=== PATIENT | male | born 1960 | race Caucasian/White ===

== ENCOUNTER 2024-02-01 21:03 | Inpatient (IN) | payer BC, SELFPAY ==
[2024-02-01] VITALS (17 sets, daily range): BP systolic 75–121; BP diastolic 44–83; PULSE 67–128; RESP 15–27; TEMP 36.1; O2SAT 93–99
--- NOTE | ~2024-02-01 | MR_ITS ---
EXAMINATION: MR cervical spine wo con DATE: 02/06/2024 17:34 INDICATION: Sudden decrease in mobility. TECHNIQUE: Magnetic resonance imaging (MRI) of the cervical spine was performed without intravenous c ontrast. COMPARISON: None FINDINGS: There is 3 degrees levocurvature of cervicothoracic spine. There is kyphosis of cervical sp ine. There is 2 mm anterolisthesis of C3 on C4. There is mild chronic anterior wedging of C5 and T1 v ertebral bodies. There is mildly decreased disc height at C3-C4 and severely decreased disc height fr om C4-C5 through C7-T1. The spinal cord signal intensity is normal. The following disc levels are spe cifically discussed: C2-C3: There is a central protrusion. There is mild bilateral uncovertebral joint osteoarthritis. The re is severe right and moderate left facet joint osteoarthritis. There is mild bilateral neural edvin inal stenosis. There is no central canal stenosis. C3-C4: There is a central protrusion with annular fissure. There is mild right and moderate left unco vertebral joint osteoarthritis. There is severe bilateral facet joint osteoarthritis. There is mild b ilateral neural foraminal stenosis. There is mild central canal stenosis. C4-C5: The disc is bulging. There is severe bilateral uncovertebral joint osteoarthritis. There is se amilcar bilateral facet joint osteoarthritis. There is mild right and moderate left neural foraminal kush nosis. There is mild central canal stenosis. C5-C6: The disc is bulging. There is severe bilateral uncovertebral joint osteoarthritis. There is mo derate right and mild left facet joint osteoarthritis. There is mild bilateral neural foraminal steno sis. There is mild central canal stenosis. C6-C7: The disc is bulging. There is moderate right and severe left uncovertebral joint osteoarthriti s. There is moderate right and mild left facet joint osteoarthritis. There is mild bilateral neural f oraminal stenosis. There is mild central canal stenosis. C7-T1: The disc is bulging. There is moderate bilateral uncovertebral joint osteoarthritis. There is severe bilateral facet joint osteoarthritis. There is mild bilateral neural foraminal stenosis. There is no central canal stenosis. IMPRESSION: 1. Severe cervical spondylosis. Reviewed, dictated and finalized at location A. CHAIN DYEING MACHINE OPERATOR
--- NOTE | ~2024-02-01 | MR_ITS ---
EXAMINATION: MR thoracic spine wo con DATE: 02/06/2024 17:35 INDICATION: Sudden decrease in mobility. TECHNIQUE: Magnetic resonance imaging (MRI) of the thoracic spine was performed without intravenous c ontrast. COMPARISON: None FINDINGS: There is 15 degrees levoscoliosis of cervicothoracic spine. There are Schmorl's nodes at ma ny levels. There is mild chronic anterior wedging of T3-T8 vertebral bodies and T11 and T12 vertebral bodies. There is decreased disc height at all levels, severe at T2-T3 and T3-T4. There is multilevel amof-at-gpmnlgsd facet joint osteoarthritis. There is mild neural foraminal stenosis at a few levels on either side. The discs are bulging at T2-T3 and T3-T4 with mild central canal stenosis. The spina l cord signal intensity is normal. IMPRESSION: 1. Severe thoracic spondylosis. 2. Cervicothoracic levoscoliosis. 3. Normal spinal cord. Reviewed, dictated and finalized at location A. TS NUTRITIONIST
--- NOTE | ~2024-02-01 | MR_ITS ---
EXAMINATION: MR lumbar spine wo con DATE: 02/06/2024 17:50 INDICATION: Sudden decrease in mobility. TECHNIQUE: Magnetic resonance imaging (MRI) of the lumbar spine was performed without intravenous con trast. Sequences included sagittal T2-weighted FSE, sagittal T2-weighted FS FSE, sagittal T1-weighted FSE, and axial T2-weighted FSE. COMPARISON: None FINDINGS: There is 3 degrees levocurvature of lumbar spine. There is 3 mm retrolisthesis of L1 on L2 and L2 on L3. There is mild chronic anterior wedging of T12 and L1 vertebral bodies. There is mildly decreased disc height at T12-L1 and L1-L2, severely decreased disc height at L2-L3 and L3-L4, moderat masood decreased disc height at L4-L5, and severely decreased disc height at L5-S1. The distal spinal co rd signal intensity is normal. The conus medullaris is at T12-L1. The following disc levels are speci fically discussed: L1-L2: The disc is bulging and has an annular fissure. There is mild bilateral facet joint osteoarthr itis. There is mild bilateral neural foraminal stenosis. There is mild central canal stenosis. L2-L3: The disc is bulging and has an annular fissure. There is moderate bilateral facet joint osteoa rthritis. There is mild right and moderate left neural foraminal stenosis. There is mild central gonzález l stenosis. L3-L4: The disc is bulging and has an annular fissure. There is mild bilateral facet joint osteoarthr itis. There is mild right and moderate left neural foraminal stenosis. There is mild central canal st enosis. L4-L5: The disc is bulging and has an annular fissure. There is moderate right and severe left facet joint osteoarthritis. There is mild bilateral neural foraminal stenosis. There is mild central canal stenosis. L5-S1: The disc is bulging and has an annular fissure. There is moderate bilateral facet joint osteoa rthritis. There is mild bilateral neural foraminal stenosis. There is mild central canal stenosis. IMPRESSION: 1. Severe lumbar spondylosis. Reviewed, dictated and finalized at location A. LRY OFFICER
--- NOTE | ~2024-02-01 | CT_ITS ---
EXAMINATION: CT chest abdomen pelvis w con DATE: 02/02/2024 13:15 INDICATION: Lactic acidosis. TECHNIQUE: Computed tomography (CT) of the chest, abdomen, and pelvis was performed with 100 mL Omnip aque 350 intravenous contrast. Automated exposure control and iterative reconstruction technique were employed. The dose-length product was 1847.67 mGy-cm. COMPARISON: Chest single view 02/01/2024 FINDINGS: CHEST CT: The lungs demonstrate mild atelectasis. No pleural effusion. The heart size is normal. No pericardial effusion. There are coronary artery calcifications. There is bilateral gynecomastia. There is severe cervical and thoracic spondylosis. There is mild chronic anterior wedging of multiple vertebral bodi es. ABDOMEN/PELVIS CT: There is diffuse hepatic steatosis. The gallbladder is distended and contains sludge versus stones. T he spleen, pancreas, and adrenal glands are normal. There are cysts in the kidneys measuring up to 2. 0 cm on the left. The prostate is moderately enlarged. There are no dilated loops of bowel. The appen rhonda is normal. There are no pathologically enlarged lymph nodes. There is no free intraperitoneal flu id. There is no significant stenosis of celiac axis, superior mesenteric artery, inferior mesenteric artery, or the renal arteries. There is severe lumbar spondylosis. There is mild chronic anterior wed ging of L1 vertebral body. IMPRESSION: 1. Gallbladder distention, which may be secondary to fasting or acute cholecystitis. Correlate with p hysical exam. 2. Diffuse hepatic steatosis. Reviewed, dictated and finalized at location A. ING MACHINE TENDER DECORATIVE IMPRESSION: 1. Gallbladder distention, which may be secondary to fasting or acute cholecyst itis. Correlate with physical exam. 2. Diffuse hepatic steatosis.
--- NOTE | ~2024-02-01 | MR_ITS ---
EXAMINATION: MR brain/brain stem wo con DATE: 02/06/2024 17:33 INDICATION: Sudden decrease in mobility. Dizziness and weakness. TECHNIQUE: Magnetic resonance imaging (MRI) of the brain and brainstem was performed without intraven ous contrast. COMPARISON: None. FINDINGS: There are small old infarcts in the cerebellum bilaterally. There are scattered areas of no nspecific increased T2-weighted signal intensity in the cerebral white matter, which is within normal limits for the patient's age. There is no intracranial hemorrhage, acute infarction, or abnormal int racranial mass lesion. The ventricles are normal in size. The orbits are normal. There is mild mucosa l thickening in the paranasal sinuses. The mastoid air cells are normal. IMPRESSION: 1. 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 Reviewed, dictated and finalized at location A. [employer]
--- NOTE | ~2024-02-01 | US_ITS ---
Limited ABDOMINAL ULTRASOUND (Doppler ultrasound interrogation techniques used as needed for this exa m.) Ordering provider: Twan Rivera MD History: . RUQ ?Acute cholecystitis . Comparison: None. FINDINGS: PANCREAS: Normal size. Increased echogenicity. PORTAL VEIN: Hepatopedal flow demonstrated. LIVER: Normal size and increased echotexture. No focal hepatic lesions or perihepatic fluid collectio ns are identified. BILIARY DUCTS: No intra or extrahepatic biliary dilation. Common bile duct measures 2.8 mm in diamete r which is normal for patient's age. GALLBLADDER: Echogenic debris is noted. No stones, gallbladder wall thickening or pericholecystic flu id. Wall thickness is 3.6 mm. Negative sonographic Herrera's sign. FREE FLUID: None visualized within the upper abdomen. IMPRESSION: Fat infiltration of the liver. Echogenic Sludge in the gallbladder. Otherwise, normal limited abdomin al ultrasound. Reviewed, dictated and finalized at location A. GER WOUND CARE IMPRESSION: Fat infiltration of the liver. Echogenic Sludge in the gallbladder. Otherwise, normal limited abdominal ultrasound.
--- NOTE | ~2024-02-01 | XR_ITS ---
Portable chest x-ray Comparison: 12/09/2012 Clinical History: Weakness Findings: Lungs are clear, without focal consolidation or pleural effusion. Cardiomediastinal silho uette is stable. Bones and soft tissues are unremarkable. Impression: Clear lungs. Reviewed, dictated and finalized at location M. LEASING EXAMINER Impression: Clear lungs.
[2024-02-01 23:34] LABS: Hematocrit 41.7 % (42.0-52.0); Hemoglobin 14.5 g/dL (14.0-18.0); Immature Platelet Fraction Pct 12.7 % (0.9-11.2); Mean Corpuscular HGB Conc 34.8 g/dl (32-36); Mean Corpuscular Hemoglobin 37.6 pg (26-34); Mean Platelet Volume 11.8 fl (7.4-10.4); Platelet Count Result 110 k/mm3 (150-375); Red Blood Count 3.86 M/mm3 (4.6-6.20); Red Cell Distribution Width 13.3 % (11.5-14.5); White Blood Count 5.5 K/mm3 (4.5-10.0)
[2024-02-01 23:43] LABS: Lactic Acid Reflex 2.8 mmol/L (0.7-2.0)
[2024-02-01 23:54] LABS: NT Pro B Type Natriuretic Pept 38 pg/mL (19.9-100); Troponin I < 0.012 ng/mL (0.000-0.034)
[2024-02-01 23:59] LABS: Band Neutrophils Percent 1 % (0-6); Basophils Absolute Manual 0.11 K/mm3 (0.0-0.1); Basophils Percent Manual 2 % (0-1); Eosinophils Absolute Manual 0.16 K/mm3 (0.02-0.50); Eosinophils Percent Manual 3 % (0-4); Giant Platelets Present; Lymphocytes Absolute Manual 1.04 K/mm3 (1.1-4.5); Monocytes Absolute Manual 0.44 K/mm3 (0.1-0.90); Monocytes Percent Manual 8 % (3-9); Neutrophils Absolute Manual 3.74 K/mm3 (1.3-6.7); Neutrophils Percent Manual 67 % (46-73); Platelet Clumps Present; Platelet Estimate Decreased (Adequate); Total Cells Counted 100
[2024-02-02] VITALS (48 sets, daily range): BP systolic 68–158; BP diastolic 28–89; PULSE 68–128; RESP 15–33; TEMP 36.7–37.9; O2SAT 92–98; BMI 38.4
[2024-02-02] LABS: Anisocytosis 1+; Schistocytes None Seen; Stomatocytes 1+
--- NOTE | 2024-02-02 | ECHO_ITS ---
Patient Info Name: Yoshi Cramer Age: 63 years : 1960 Gender: Male Ht: 71 in Wt: 275 lbs BSA: 2.55 m2 HR: 87 bpm BP: 131 / 66 mmHg Technical Quality: Fair Exam Date: 02/02/2024 9:27 AM Exam Location: Echo Lab Patient Status: Inpatient Admit Date: 02/02/2024 Staff Ordering Physician: Gerardo Hussein MD Ruby On Rails Web Developer: Sheri Mathias RDCS Attending Provider: Gerardo Hussein MD Referring Physician: Keenan PADILLA; Exam Type: CA echo doppler color flow Study Info Indications R42 - Dizziness and giddiness Complete two-dimensional, color flow and Doppler transthoracic echocardiogram is performed. Summary 1. Complete two-dimensional, color flow and Doppler transthoracic echocardiogram is performed. 2. Left ventricle is normal in size and systolic function. The left ventricular ejection fraction is visually estimated to be 50-55%. 3. The right ventricle is normal in size and systolic function. Left Ventricle Left ventricle is normal in size and systolic function. The left ventricular ejection fraction is visually estimated to be 50-55%. Right Ventricle The right ventricle is normal in size and systolic function. Left Atria The left atrium is normal in size. Right Atria The right atrium is normal in size. Atrial Septum The atrial septum visually appears intact. Aortic Valve The aortic valve is not well visualized however the gradients across the valve suggests a normal functioning aortic valve. There is trace aortic regurgitation. Pulmonic Valve The pulmonic valve is not well visualized. There is no color Doppler evidence of pulmonic valve regurgitation. Mitral Valve The mitral valve is normal. There is trace mitral regurgitation. Tricuspid Valve The tricuspid valve is grossly normal. There is trace tricuspid regurgitation. Pericardium/Pleural Pericardium is normal in appearance with no evidence for significant pericardial effusion. Inferior Vena Cava Inferior vena cava is not well visualized. Aorta The aortic root at the level of the sinus of Valsalva measures 3.6 cm in diameter. Left Ventricular Outflow Tract Name Value Normal LVOT 2D LVOT Diameter 2.3 cm LVOT Doppler LVOT Peak Gradient 6 mmHg LVOT Mean Gradient 4 mmHg LVOT VTI 28 cm LVOT VTI/AV VTI Ratio 1.1 LVOT Stroke Volume 115 ml LVOT CO 8.8 l/min LVOT CI 3.5 l/min/m2 Pulmonic Valve Name Value Normal RVOT Doppler RVOT Peak Gradient 4 mmHg PV Doppler PV Peak Gradient 5 mmHg Mitral Valve Name Value Normal MV Doppler MV Decel Routt 272 cm/s2 MV PHT 54 ms MV Area (PHT) 4.1 cm2 4.0-5.0 MV Diastolic Function MV E Peak Velocity 51 cm/s MV A Peak Velocity 99 cm/s MV E/A 0.5 MV Decel Time 186 ms Tricuspid Valve Name Value Normal TV Regurgitation Doppler TR Peak Velocity 207 cm/s TR Peak Gradient 17 mmHg Estimated PAP/RSVP RA Pressure 10 mmHg <=5 PA Systolic Pressure 27 mmHg <36 RV Systolic Pressure 27 mmHg <36 Aorta Name Value Normal Ascending Aorta Ao Root Diameter (MM) 3.8 cm Ao Root Diam Index (MM) 1.5 cm/m2 Aortic Valve Name Value Normal AV Doppler AV Peak Velocity 150 cm/s AV Peak Gradient 9 mmHg AV Mean Gradient 5 mmHg AV VTI 25 cm AV Area (Cont Eq VTI) 4.6 cm2 >=3.0 AV Area (Cont Eq Alf) 3.3 cm2 AV Regurgitation 2D LVOT Area 4.1 cm2 AV Regurgitation Doppler AR Decel Time 1,810 ms AR Decel Routt 195 cm/s2 AR PHT 525 ms Ventricles Name Value Normal LV Dimensions 2D/MM IVS Diastolic Thickness (2D) 0.9 cm 0.6-1.0 LVID Diastole (2D) 5.3 cm 4.2-5.8 LVIW Diastolic Thickness (2D) 0.9 cm 0.6-1.0 LVID Systole (2D) 3.4 cm 2.5-4.0 LVOT Diameter 2.3 cm LV Mass (2D Cubed) 178.41 g 88.00-224.00 LV Mass Index (2D Cubed) 70 g/m2 49-115 Relative Wall Thickness (2D) 0.34 LV Fractional Shortening/Ejection Fraction 2D/MM LV Fractional Shortening (2D) 35 % 25-43 LV EF (2D Teicholz) 64 % 52-72 LV Diastolic Volume (4C MOD) 96 ml LV EF (4C MOD) 60 % LV Diastolic Volume (2C MOD) 93 ml LV EF (2C MOD) 51 % LV Diastolic Volume (BP MOD) 95 ml 62-150 LV Diastolic Volume Index (BP MOD) 37 ml/m2 34-74 LV Systolic Volume (BP MOD) 43 ml 21-61 LV Systolic Volume Index (BP MOD) 17 ml/m2 11-31 LV EF (BP MOD) 54 % 52-72 LV Diastolic Length (4C) 9.7 cm LV Systolic Length (4C) 8.2 cm LV Stroke Volume (4C MOD) 57 ml Atria Name Value Normal LA Dimensions LA Dimension (MM) 4.3 cm 3.0-4.1 LA Volume (4C A-L) 35 ml LA Volume (BP A-L) 48 ml RA Dimensions RA Area (4C) 15.3 cm2 <=18.0 EchoPAC Name Value Normal AutoEF LVCO_BiP_Q (Dkie8INF) 6.1 l/min LVEF_BiP_Q (Uxxk1HZP) 51 % LVSV_BiP_Q (Goli9NRN) 65 ml LVVED_BiP_Q (Hmcd4MZG) 128 ml LVVES_BiP_Q (Bqnh8VZS) 62 ml HR_4Ch_Q (Mkaj7IQS) 92 bpm LVCO_4Ch_Q (Rzcg7PPT) 6.0 l/min LVEF_4Ch_Q (Yldb0AAT) 53 % LVLd_4Ch_Q (Rtxe4BAB) 10.2 cm LVLs_4Ch_Q (Boxz8CTV) 8.7 cm LVSV_4Ch_Q (Xqlf7CVO) 65 ml LVVED_4Ch_Q (Dkyw9OEZ) 123 ml LVVES_4Ch_Q (Hsen5IAT) 58 ml HR_2Ch_Q (Mbwb7PVF) 93 bpm LVCO_2Ch_Q (Opgd1BAV) 6.1 l/min LVEF_2Ch_Q (Pwgf2GDV) 49 % LVLd_2Ch_Q (Ymyk3IUZ) 10.0 cm LVLs_2Ch_Q (Rvci8STM) 8.4 cm LVSV_2Ch_Q (Uiln5HPL) 66 ml LVVED_2Ch_Q (Qzfb5CTM) 134 ml LVVES_2Ch_Q (Yaqg3JKC) 68 ml ADDIE AA peak sys SL (AWMA) 12.1 % AAS peak sys SL (AWMA) 28.0 % AI peak sys SL (AWMA) 21.0 % AL peak sys SL (AWMA) 14.3 % AP peak sys SL (AWMA) 13.8 % peak sys SL (AWMA) 15.5 % AVC (AWMA) 286 ms BA peak sys SL (AWMA) 33.1 % BAS peak sys SL (AWMA) 22.6 % BI peak sys SL (AWMA) 18.3 % BL peak sys SL (AWMA) 19.4 % BP peak sys SL (AWMA) 26.6 % BS peak sys SL (AWMA) 9.0 % G peak SL(A2C) (AWMA) 18.9 % G peak SL(A4C) (AWMA) 15.1 % G peak SL(APLAX) (AWMA) 20.8 % G peak SL(Avg) (AWMA) 18.3 % MA peak sys SL (AWMA) 15.1 % MAS peak sys SL (AWMA) 22.9 % DE peak sys SL (AWMA) 18.7 % ML peak sys SL (AWMA) 16.1 % MP peak sys SL (AWMA) 8.9 % MS peak sys SL (AWMA) 21.0 % Report Signatures
[2024-02-02 00:01] LABS: Atypical Lymphocytes Present; Smudge Cells PRESENT
[2024-02-02 00:03] LABS: Alanine Aminotransferase 68 U/L (6-50); Albumin Level 4.8 g/dL (3.5-5.1); Alkaline Phosphatase 76 U/L (38-126); Anion Gap 19 mmol/L (4-12); Aspartate Amino Transferase 136 U/L (17-59); Bilirubin,Total 1.4 mg/dL (0.2-1.3); Blood Urea Nitrogen 11 mg/dL (9-20); Carbon Dioxide 25 mmol/L (22-30); Chloride 95 mmol/L (98-107); Estimated Glomerular Filt Rate > 60; Glucose 91 mg/dL (65-110); Magnesium 2.1 mg/dL (1.6-2.3); Sodium 139 mmol/L (137-145)
[2024-02-02] MEDS: SODIUM CHLORIDE 0.9% IV 1,000 ML 999 ML IV CONT ×4 (00:20→07:38)
[2024-02-02] MEDS: Please add drug allergy info to patient profile. 1 EACH XX (01:17)
[2024-02-02] MEDS: POTASSIUM CHLORIDE 20 MEQ PACKET (FOR LIQUID) 40 MEQ PO ×3 (01:29→09:06)
--- NOTE | 2024-02-02 01:43 | ECG_ITS ---
Test Date: 2024-02-02 01:43:48 Measurements Intervals [place] Rate: 73 P: 58 MI: 180 QRS: -53 QRSD: 152 T: 1 QT: 420 QTc: 464 Interpretive Statements SINUS RHYTHM LEFT AXIS DEVIATION [QRS AXIS < -30] RIGHT BUNDLE BRANCH BLOCK [120+ ms QRS DURATION, UPRIGHT V1, 40+ ms S IN I/aVL/V4/V5/V6] ABNORMAL ECG Electronically Signed On 02-02-2024 09:01:13 SEALING AND CANCELING MACHINE OPERATOR by Jake Akers M.D.
--- NOTE | 2024-02-02 01:55 | ED_ITS ---
HPI - General Adult General Chief complaint: Dizziness Stated complaint: dizziness Time Seen by Provider: 02/01/24 23:00 History of Present Illness HPI narrative: Patient is a 61-year-old gentleman who presents emergency department with chief complaint of dizziness. The patient reports that T had a few drinks this evening and then reports that he has been feeling lightheaded patient reports that over the last week or so he has had episodes where he has been getting lightheaded with standing and reports that he continues walking he with then loses balance and fall the ground the patient denies head injury denies loss of consciousness reports that the symptoms are improved with gradual standing. The patient reports that he has had no vomiting or diarrhea denies chest pain or sh ortness of breath Related Data Allergies Allergy/AdvReac Type Severity Reaction Status Date / Time No Known Allergies Allergy Verified 02/02/24 03:48 Review of Systems Review of Systems: A 10 system review of systems was completed on the patient and is negative except for what is stated in the HPI. Nursing and ancillary documentation was reviewed. Exam Narrative: GENERAL: Well-appearing, well-nourished, and in no acute distress. HEAD: Normocephalic, atraumatic. EYES: PERRLA and EOMI. ENT: Nares clear, no rhinorrhea or epistaxis. Mucous membranes moist. NECK: Supple. CHEST: Clear to auscultation. No respiratory distress. HEART: Regular rate and rhythm. No murmur heard. Normal peripheral pulses. ABDOMEN: Soft, nontender, nondistended, normal active bowel sounds. EXTREMITIES: Normal range of motion. No edema. SKIN: Warm, dry, no rash. NEURO: No focal deficits. Alert and oriented x3. PSYCH: Normal mood and affect. Course Vital Signs Vital signs: Vital Signs Temperature 36.1 C L 02/01/24 21:06 Pulse Rate 96 02/01/24 21:06 Respiratory Rate 15 02/01/24 21:06 Blood Pressure 121/83 02/01/24 21:06 Pulse Oximetry 97 02/01/24 21:06 Oxygen Delivery Room Air 02/01/24 21:06 Temperature 36.1 C L 02/01/24 21:06 Pulse Rate 78 02/02/24 03:16 Respiratory Rate 20 02/02/24 03:16 Blood Pressure 131/72 02/02/24 03:16 Pulse Oximetry 94 02/02/24 03:16 Oxygen Delivery Room Air 02/01/24 21:06 Medical Decision Making MDM Narrative Medical decision making narrative: Differential diagnosis includes dehydration, orthostatic hypotension, electrolyte abnormality, anemia, EKG showed no acute ischemic changes the patient was profoundly orthostatic prior to receiving the 1 L of fluids. The patient has received a total of 2 L of boluses in the emergency department Patient received an additional L of normal saline and has had significant improvement but is still orthostatic. The case was discussed with the hospitalist for observation admission Vital Signs Vital Signs: Vital Signs Temperature 36.1 C L 02/01/24 21:06 Pulse Rate 96 02/01/24 21:06 Respiratory Rate 15 02/01/24 21:06 Blood Pressure 121/83 02/01/24 21:06 Pulse Oximetry 97 02/01/24 21:06 Oxygen Delivery Room Air 02/01/24 21:06 Temperature 36.1 C L 02/01/24 21:06 Pulse Rate 78 02/02/24 03:16 Respiratory Rate 20 02/02/24 03:16 Blood Pressure 131/72 02/02/24 03:16 Pulse Oximetry 94 02/02/24 03:16 Oxygen Delivery Room Air 02/01/24 21:06 Lab Data 02/01/24 23:26 02/01/24 23:26 Labs: Lab Results 02/01/24 Range/Units 23:26 WBC 5.5 (4.5-10.0) K/mm3 RBC 3.86 L (4.6-6.20) M/mm3 Hgb 14.5 (14.0-18.0) g/dL Hct 41.7 L (42.0-52.0) % MCV 108.0 H (80-100) fl MCH 37.6 H (26-34) pg MCHC 34.8 (32-36) g/dl RDW 13.3 (11.5-14.5) % Plt Count 110 L (150-375) k/mm3 MPV 11.8 H (7.4-10.4) fl Immature Gran % (Auto) Not Reportable Neut % (Auto) Not Reportable Lymph % (Auto) Not Reportable [place] % (Auto) Not Reportable Eos % (Auto) Not Reportable Baso % (Auto) Not Reportable Lymph # (Auto) Not Reportable [place] # (Auto) Not Reportable Eos # (Auto) Not Reportable Baso # (Auto) Not Reportable Abs Immat Gran (auto) Not Reportable Absolute Neuts (auto) Not Reportable Absolute Nucleated RBC Not Reportable Total Counted 100 Neutrophils % (Manual) 67 (46-73) % Band Neutrophils % 1 (0-6) % Lymphocytes % (Manual) 19.0 (18-44) % Monocytes % (Manual) 8 (3-9) % Eosinophils % (Manual) 3 (0-4) % Basophils % (Manual) 2 H (0-1) % Nucleated RBC % Not Reportable Abs Neuts (Manual) 3.74 (1.3-6.7) K/mm3 Abs Lymphs (Manual) 1.04 L (1.1-4.5) K/mm3 Abs Monocytes (Manual) 0.44 (0.1-0.90) K/mm3 Absolute Eos (Manual) 0.16 (0.02-0.50) K/mm3 Abs Basophils (Manual) 0.11 H (0.0-0.1) K/mm3 Atypical Lymphocytes Present Smudge Cells Present Platelet Estimate Decreased (Adequate) Clumped Platelets Present Giant Platelets Present % Immature Plt Fraction 12.7 H (0.9-11.2) % Anisocytosis 1+ Stomatocytes 1+ Schistocytes None seen Sodium 139 (137-145) mmol/L Potassium 3.0 L (3.4-5.0) mmol/L Chloride 95 L (98-107) mmol/L Carbon Dioxide 25 (22-30) mmol/L Anion Gap 19 H (4-12) mmol/L BUN 11 (9-20) mg/dL Creatinine 0.90 (0.7-1.3) mg/dL Estim Creat Clear Calc Not Reportable Estimated GFR > 60 (59 - ) Glucose 91 (65-110) mg/dL Lactic Acid 2.8 H (0.7-2.0) mmol/L Calcium 9.0 (8.4-10.2) mg/dL Magnesium 2.1 (1.6-2.3) mg/dL Total Bilirubin 1.4 H (0.2-1.3) mg/dL AST 136 H (17-59) U/L ALT 68 H (6-50) U/L Alkaline Phosphatase 76 (38-126) U/L Troponin I < 0.012 (0.000-0.034) ng/mL NT-Pro-B Natriuret Pep 38 (19.9-100) pg/mL Total Protein 8.0 (6.3-8.2) g/dL Albumin 4.8 (3.5-5.1) g/dL Discharge Plan Discharge Clinical Impression: Orthostatic hypotension Patient Disposition: Still a Patient Condition: Stable Follow-up/Referrals: Myesha,ELIE Dior [Primary Care Provider] - Time of Disposition: 03:52
[2024-02-02 02:30] LABS: Reflex Lactic Acid Yes or No Add Lactic
[2024-02-02] MEDS: THIAMINE 500 MG/NS 100 ML 500 MG/100 ML BAG 200 MG IVPB (04:13)
[2024-02-02 04:56] LABS: Lactic Acid 2.7 mmol/L (0.7-2.0)
[2024-02-02 04:57] LABS: Add Urine Microscopic? YES; Appearance Urine Clear (Clear); Bacteria Urine None Seen /hpf; Bilirubin Urine Negative (Negative); Blood Urine 3+ (Negative); Color Urine Dark Yellow (Yellow); Glucose Urine UA Negative (Negative); Ketones Urine 3+ mg/dL (Negative); Leukocyte Esterase Ur Negative LEU/UL (Negative); Nitrate Urine Negative (Negative); Protein Urine 2+ mg/dL (Negative); RBC Urine >100 /hpf (0-2); Squamous Epithelial Cell Urine None Seen /hpf (Few); WBC Urine 0-5 /hpf (0-3); pH Urine 5.5 (5.0-9.0)
[2024-02-02 05:01] LABS: Anion Gap 18 mmol/L (4-12); Blood Urea Nitrogen 10 mg/dL (9-20); Carbon Dioxide 20 mmol/L (22-30); Chloride 101 mmol/L (98-107); Estimated Glomerular Filt Rate > 60; Ethanol 106 mg/dL (<10); Glucose 86 mg/dL (65-110); Potassium 3.1 mmol/L (3.4-5.0); Sodium 139 mmol/L (137-145); Troponin I < 0.012 ng/mL (0.000-0.034)
--- NOTE | 2024-02-02 05:37 | PC.NURSE ---
PATIENT ARRIVED ON UNIT AT 0530
[2024-02-02] MEDS: SODIUM CHLORIDE 0.9% IV 1,000 ML 125 ML IV CONT (06:01)
--- NOTE | 2024-02-02 06:27 | P.HP_ITS ---
H&P: HPI History of Present Illness Date/Time: 02/02/24 06:27 Chief Complaint: 1. Dizziness 2. Unstable gait Narrative: Yoshi Cramer is a 63 yo M with a Mhx significant for obesity, alcohol dependence, glaucoma and dyslipidemia He over the last week he has been experiencing dizzy spells; they are aggravated by positional changes like standing from sitting, alleviated by immobility, associated wiht poor execution of his ADLs and near falls. He denies chest pain, nausea, vomiting, dysuria, flank pain, fevers, headaches, confusion, skin/joint changes He consumes about 3-5 mixed drinks daily, denies smoking/tobacco use or recreational drug use Work-up findings CXR: Unremarkable WBC 3.3 Hb 14 PLT 110 MCVV 108 Na 139 K 3 Cl 95 HCO3 25 AG 19 LA 2.8 >> 2.7 AST 136 ALT 68 T. Bili 1.4 Troponin: <0.012 x2 ECG: NsR: RBBB; no ST-T wave changes. BNP 38UA: Unremarkable Alcohol 106 In the ED, his VS were orthostatic+; He will be admitted, evaluated and managed for orthostatic hypotension and dizziness Review of Systems Review of Systems: All systems reviewed & are unremarkable except as noted in HPI and below Constitutional: Constitutional: Reports body ache(s) and Reports fatigue Eyes: Eyes: Reports blurry vision ENT: Reports system reviewed and no additional complaints, except as documented, Reports Normal hearing present and Denies dysphagia Cardiovascular: Cardiovascular: Denies leg edema and Reports lightheadedness Respiratory: Respiratory: Reports hemoptysis, Reports dyspnea and Reports dyspnea on exertion Gastrointestinal: Gastrointestinal: Denies hematochezia, Denies constipation, Denies heartburn, Denies diarrhea and Denies vomiting Genitourinary: Genitourinary: Denies flank pain, Denies urinary frequency and Denies urinary hesitancy Integumentary/Breasts: Skin/Breast: Denies breast mass, Denies dry skin and Denies erythema Neurologic: Denies Abnormal speech present, Reports abnormal gait, Denies confusion, Denies vertigo and Denies headache(s) Psychiatric: Psychiatric: Denies confusion and Denies depression [facility] Family History Family History (Updated 02/02/24 @ 05:10 by Jaleesa Graves RN) Mother Lung cancer Father Chronic obstructive pulmonary disease Cerebrovascular accident Social History Social History Years smoked: 1 Smoking status: Former smoker Alcohol intake: current Drinks per week: 21 Substance use type: does not use Do You Feel Safe in your Home?: Yes Lack of Transportation: No Lack of Food: Never True Current Housing: I Have Housing Concerned About Future Housing: No Difficulty Paying Gas/Electric Bills: No Difficulty Paying for Meds: No Currently Unemployed: No Education: Bachelor's Degree Difficulty w/ Childcare or Family Care: No Spiritual care concerns: No Meds Home Medications and Allergies Home Medications Medication Instructions Recorded Confirmed Type bimatoprost 0.01 % eye drops 1 drp EACH EYE HS 02/02/24 02/02/24 History ([place]) rosuvastatin 10 mg tablet 10 mg PO HS 02/02/24 02/02/24 History Allergies Allergy/AdvReac Type Severity Reaction Status Date / Time No Known Allergies Allergy Verified 02/02/24 03:48 Vital Signs Vital Signs - 24 hr 02/01/24 21:06 02/01/24 21:51 02/01/24 21:54 Temperature 97 F L Pulse Rate 96 80 76 Respiratory Rate 15 19 27 H Blood Pressure 121/83 118/75 Pulse Oximetry 97 95 95 Oxygen Delivery Room Air 02/01/24 22:17 02/01/24 22:30 02/01/24 22:32 Temperature Pulse Rate 69 67 71 Respiratory Rate 18 18 17 Blood Pressure 116/63 115/57 L Pulse Oximetry 93 Oxygen Delivery 02/01/24 22:47 02/01/24 23:02 02/01/24 23:15 Temperature Pulse Rate 85 76 76 Respiratory Rate 21 H 20 19 Blood Pressure 118/71 110/63 Pulse Oximetry 95 97 Oxygen Delivery 02/01/24 23:16 02/01/24 23:44 02/01/24 23:45 Temperature Pulse Rate 77 79 82 Respiratory Rate 21 H Blood Pressure 102/77 117/70 110/60 Pulse Oximetry Oxygen Delivery 02/01/24 23:47 02/02/24 02:14 02/02/24 02:16 Temperature Pulse Rate 117 H 82 98 Respiratory Rate Blood Pressure 75/44 L 123/61 132/74 Pulse Oximetry Oxygen Delivery 02/02/24 02:18 02/01/24 23:32 02/01/24 23:46 Temperature Pulse Rate 128 H 75 83 Respiratory Rate 21 H 23 H Blood Pressure 68/46 L 117/62 117/70 Pulse Oximetry 96 99 Oxygen Delivery 02/01/24 23:48 02/01/24 23:50 02/02/24 00:00 Temperature Pulse Rate 128 H 72 Respiratory Rate 25 H 24 H Blood Pressure 110/60 75/44 L Pulse Oximetry 98 97 Oxygen Delivery 02/02/24 00:02 02/02/24 00:15 02/02/24 00:16 Temperature Pulse Rate 70 75 77 Respiratory Rate 21 H 20 21 H Blood Pressure 116/66 104/63 Pulse Oximetry 96 94 94 Oxygen Delivery 02/02/24 00:30 02/02/24 00:31 02/02/24 00:45 Temperature Pulse Rate 70 70 77 Respiratory Rate 20 21 H 20 Blood Pressure 105/62 Pulse Oximetry 96 97 95 Oxygen Delivery 02/02/24 00:46 02/02/24 01:00 02/02/24 01:01 Temperature Pulse Rate 78 76 73 Respiratory Rate 20 18 16 Blood Pressure 119/66 102/59 L Pulse Oximetry 94 98 Oxygen Delivery 02/02/24 01:05 02/02/24 01:07 02/02/24 01:08 Temperature Pulse Rate 80 101 H 99 Respiratory Rate 20 24 H 21 H Blood Pressure 114/64 76/28 L 107/64 Pulse Oximetry 92 95 Oxygen Delivery 02/02/24 01:14 02/02/24 01:15 02/02/24 01:17 Temperature Pulse Rate 74 89 68 Respiratory Rate 22 H 25 H 22 H Blood Pressure 118/63 131/58 L Pulse Oximetry 93 93 95 Oxygen Delivery 02/02/24 01:30 02/02/24 01:32 02/02/24 01:45 Temperature Pulse Rate 100 89 80 Respiratory Rate 24 H 17 24 H Blood Pressure 113/67 Pulse Oximetry 96 Oxygen Delivery 02/02/24 01:47 02/02/24 02:00 02/02/24 02:01 Temperature Pulse Rate 74 80 80 Respiratory Rate 22 H 22 H 19 Blood Pressure 118/81 122/61 Pulse Oximetry 97 96 95 Oxygen Delivery 02/02/24 02:15 02/02/24 02:16 02/02/24 02:18 Temperature Pulse Rate 95 82 98 Respiratory Rate 25 H 22 H 15 Blood Pressure 123/61 132/74 Pulse Oximetry 93 98 93 Oxygen Delivery 02/02/24 02:22 02/02/24 02:27 02/02/24 02:30 Temperature Pulse Rate 119 H 77 79 Respiratory Rate 26 H 22 H 20 Blood Pressure 68/46 L 98/65 L Pulse Oximetry 95 96 Oxygen Delivery 02/02/24 02:31 02/02/24 02:46 02/02/24 03:16 Temperature Pulse Rate 80 78 78 Respiratory Rate 22 H 21 H 20 Blood Pressure 105/86 130/63 131/72 Pulse Oximetry 92 93 94 Oxygen Delivery 02/02/24 03:33 02/02/24 03:36 02/02/24 03:45 Temperature Pulse Rate 105 H 98 121 H Respiratory Rate 28 H 26 H 19 Blood Pressure 145/83 H 120/69 Pulse Oximetry 92 Oxygen Delivery 02/02/24 03:47 02/02/24 04:00 02/02/24 04:02 Temperature Pulse Rate 77 85 Respiratory Rate 21 H 33 H Blood Pressure 98/58 L 125/76 Pulse Oximetry Oxygen Delivery 02/02/24 05:55 Temperature 98.4 F Pulse Rate 83 Respiratory Rate 20 Blood Pressure 131/66 Pulse Oximetry 92 Oxygen Delivery Exam HENMT: Ears: TM's normal bilaterally Mouth: Yes moist mucous membranes, Yes dry mucous membranes and Yes Abnormal oral and palatal mucosa present Eyes: Pupils: Equal, round and reactive pupils present EOM: EOMs intact bilaterally Neck: Neck: supple Lymphatic: lymphadenopathy not noted Resp: Auscultation: clear to auscultation bilaterally, no crackles, no rales, no rhonchi and no wheezes Cardio: Rate: regular rate Rhythm: regular rhythm GI: Auscultation: normal bowel sounds : Male General Exam: Yes normal external exam Skin: General skin exam: normal color Neuro: Motor exam (neuro): 5/5 motor strength present throughout, Normal motor muscle tone present throughout and Abnormal motor strength present Extrem: General: normal to inspection Psych: Mental Status: mental status grossly normal Affect: normal affect and Anxious affect present H&P: Results Labs Labs: Short CBC 02/01/24 Range/Units 23:26 WBC 5.5 (4.5-10.0) K/mm3 Hgb 14.5 (14.0-18.0) g/dL Hct 41.7 L (42.0-52.0) % Plt Count 110 L (150-375) k/mm3 BMP 02/01/24 02/02/24 23:26 04:05 Sodium 139 139 Potassium 3.0 L 3.1 L Chloride 95 L 101 Carbon Dioxide 25 20 L BUN 11 10 Creatinine 0.90 0.90 Glucose 91 86 Calcium 9.0 8.0 L Cardiac Enzymes 02/01/24 02/02/24 Range/Units 23:26 04:05 Troponin I < 0.012 < 0.012 (0.000-0.034) ng/mL Liver Function 02/01/24 Range/Units 23:26 Total Bilirubin 1.4 H (0.2-1.3) mg/dL AST 136 H (17-59) U/L ALT 68 H (6-50) U/L Alkaline Phosphatase 76 (38-126) U/L Albumin 4.8 (3.5-5.1) g/dL Urine 02/02/24 Range/Units 03:58 Urine Color Dark yellow (Yellow) Urine Appearance Clear (Clear) Urine pH 5.5 (5.0-9.0) Ur Specific [place] 1.020 (1.001-1.035) Urine Protein 2+ H (Negative) mg/dL Urine Glucose (UA) Negative (Negative) mg/dL Assessment and Plan Assessment and plan (1) Orthostatic hypotension: Code(s): I95.1 - Orthostatic hypotension Status: Acute (2) Lactic acid acidosis: Code(s): E87.20 - Acidosis, unspecified Status: Acute (3) Alcohol intoxication: Code(s): F10.929 - Alcohol use, unspecified with intoxication, unspecified Status: Acute (4) High anion gap metabolic acidosis: Code(s): E87.29 - Other acidosis Status: Acute Plan Acute and principal conditions 1. Dizziness 2. Alcohol intoxication 3. HAGMA 4. Lactic acidemia 5. Orthostatic hypotension 6. Likely dehydration due to potomania 7. Hypokalemia IVFs; monitor LA PT eval and Rx; Falls precautions Thiamine, FA, MV Monitor for alcohol withdrawal Replete and monitor K; check Mg Chronic and stable conditions 1.Obesity, BMI 38 2. Dyslipidemia. On Statin 3. Glaucoma. on Bimatoprost Code status. Full Nutrition. Regular Quality VTE Prophylaxis VTE prophylaxis: mechanical ordered and pharmacologic ordered Hospitalist [facility] Advance Care Plan I have confirmed that the patient's Advanced Care Plan is present, code status is documented, or surrogate decision maker is listed in patient medical record.: Yes Medication Reconciliation I have utilized all available resources to obtain, update and review the patients current medications (includes all prescriptions, OTC, herbals, cannabis, and nutritional supplements).: Yes The patient is not eligible for med reconciliation; the patient is in a emergent medical situation where delaying treatment would jeopardize the patients health.: No
[2024-02-02 07:16] LABS: Magnesium 1.8 mg/dL (1.6-2.3)
[2024-02-02] MEDS: HEPARIN SODIUM 5,000 UNITS/ML VIAL 5000 UNITS SUB-Q ×2 (09:05→21:08)
[2024-02-02] MEDS: THIAMINE HCL 200 MG/2 ML VIAL 100 MG IV PUSH (09:05)
[2024-02-02 10:26] LABS: Folic Acid 3.7 ng/mL (2.76->20)
[2024-02-02 11:27] LABS: Glucose Point of Care 82 mg/dl (65-105)
--- NOTE | 2024-02-02 12:22 | PM.IMPN ---
Progress Note: A&P Assessment and Plan (1) Orthostatic hypotension: Code(s): I95.1 - Orthostatic hypotension Status: Acute (2) Lactic acid acidosis: Code(s): E87.20 - Acidosis, unspecified Status: Acute (3) Alcohol intoxication: Code(s): F10.929 - Alcohol use, unspecified with intoxication, unspecified Status: Acute (4) High anion gap metabolic acidosis: Code(s): E87.29 - Other acidosis Status: Acute Plan HYpotension with lactic acidosis and anion gap metabolic acidosis WBC normal, CXR normal BP wnl, however othostatic this morning ECHO pending, CT Chest and AP pending continue IVF monitor Dizziness and orthostatic hypotension Dehydration vs infection vs r/o cardiac etiology F/u ECHO continue IVF and monitor orthostatic vital signs alcohol intoxication continue IVF and CIWA protocol multivitamin Hypokalemia K 3.1 replaced and monitor Chronic and stable conditions 1.Obesity, BMI 38 2. Dyslipidemia. On Statin 3. Glaucoma. on Bimatoprost Code status. Full Nutrition. Regular DVT prophylaxis Sq Lovenox Subjective Date/time seen: 02/02/24 12:22 Interval history: Patient comfortable at bedside Still orthostatic, BP dropped to 112 SBP from 158 going from sitting to standing ECHO pending contineu IVF for now Review of Systems Review of Systems: All systems reviewed & are unremarkable except as noted in HPI and below Constitutional: Constitutional: Reports body ache(s), Reports fatigue and Denies headache(s) Eyes: Eyes: Reports blurry vision ENT: Reports system reviewed and no additional complaints, except as documented, Reports Normal hearing present, Denies dysphagia, Denies vertigo and Denies headache(s) Cardiovascular: Cardiovascular: Denies leg edema, Reports lightheadedness, Reports dyspnea and Reports dyspnea on exertion Respiratory: Respiratory: Reports hemoptysis, Reports dyspnea and Reports dyspnea on exertion Gastrointestinal: Gastrointestinal: Denies hematochezia, Denies constipation, Denies dysphagia, Denies heartburn, Denies diarrhea and Denies vomiting Genitourinary: Genitourinary: Denies flank pain, Denies urinary frequency and Denies urinary hesitancy Musculoskeletal: Musculoskeletal: Reports abnormal gait Integumentary/Breasts: Skin/Breast: Denies breast mass, Denies dry skin and Denies erythema Neurologic: Reports Normal hearing present, Denies Abnormal speech present, Reports abnormal gait, Denies confusion, Denies vertigo and Denies headache(s) Psychiatric: Psychiatric: Denies confusion and Denies depression Endocrine: Endocrine: Reports fatigue Exam Const: General: No confusion Orientation/consciousness: No confusion HENMT: Ears: TM's normal bilaterally Mouth: Yes moist mucous membranes, Yes dry mucous membranes and Yes Abnormal oral and palatal mucosa present Eyes: Pupils: Equal, round and reactive pupils present EOM: EOMs intact bilaterally Neck: Neck: supple Lymphatic: lymphadenopathy not noted Resp: Auscultation: clear to auscultation bilaterally, no crackles, no rales, no rhonchi and no wheezes Cardio: Rate: regular rate Rhythm: regular rhythm GI: Auscultation: normal bowel sounds : Male General Exam: Yes normal external exam Skin: General skin exam: normal color Neuro: General: No confusion Cranial nerves: Yes Equal, round and reactive pupils present and Yes Normal hearing present Speech: No Abnormal speech present Motor exam (neuro): 5/5 motor strength present throughout, Normal motor muscle tone present throughout and Abnormal motor strength present Extrem: General: normal to inspection Psych: Mental Status: mental status grossly normal Affect: normal affect and Anxious affect present Objective Data Vital Signs Vital Signs: Vital Signs - 24 hr 02/01/24 21:06 02/01/24 21:51 02/01/24 21:54 Temperature 97 F L Pulse Rate 96 80 76 Respiratory Rate 15 19 27 H Blood Pressure 121/83 118/75 Pulse Oximetry 97 95 95 Oxygen Delivery Room Air 02/01/24 22:17 02/01/24 22:30 02/01/24 22:32 Temperature Pulse Rate 69 67 71 Respiratory Rate 18 18 17 Blood Pressure 116/63 115/57 L Pulse Oximetry 93 Oxygen Delivery 02/01/24 22:47 02/01/24 23:02 02/01/24 23:15 Temperature Pulse Rate 85 76 76 Respiratory Rate 21 H 20 19 Blood Pressure 118/71 110/63 Pulse Oximetry 95 97 Oxygen Delivery 02/01/24 23:16 02/01/24 23:44 02/01/24 23:45 Temperature Pulse Rate 77 79 82 Respiratory Rate 21 H Blood Pressure 102/77 117/70 110/60 Pulse Oximetry Oxygen Delivery 02/01/24 23:47 02/02/24 02:14 02/02/24 02:16 Temperature Pulse Rate 117 H 82 98 Respiratory Rate Blood Pressure 75/44 L 123/61 132/74 Pulse Oximetry Oxygen Delivery 02/02/24 02:18 02/01/24 23:32 02/01/24 23:46 Temperature Pulse Rate 128 H 75 83 Respiratory Rate 21 H 23 H Blood Pressure 68/46 L 117/62 117/70 Pulse Oximetry 96 99 Oxygen Delivery 02/01/24 23:48 02/01/24 23:50 02/02/24 00:00 Temperature Pulse Rate 128 H 72 Respiratory Rate 25 H 24 H Blood Pressure 110/60 75/44 L Pulse Oximetry 98 97 Oxygen Delivery 02/02/24 00:02 02/02/24 00:15 02/02/24 00:16 Temperature Pulse Rate 70 75 77 Respiratory Rate 21 H 20 21 H Blood Pressure 116/66 104/63 Pulse Oximetry 96 94 94 Oxygen Delivery 02/02/24 00:30 02/02/24 00:31 02/02/24 00:45 Temperature Pulse Rate 70 70 77 Respiratory Rate 20 21 H 20 Blood Pressure 105/62 Pulse Oximetry 96 97 95 Oxygen Delivery 02/02/24 00:46 02/02/24 01:00 02/02/24 01:01 Temperature Pulse Rate 78 76 73 Respiratory Rate 20 18 16 Blood Pressure 119/66 102/59 L Pulse Oximetry 94 98 Oxygen Delivery 02/02/24 01:05 02/02/24 01:07 02/02/24 01:08 Temperature Pulse Rate 80 101 H 99 Respiratory Rate 20 24 H 21 H Blood Pressure 114/64 76/28 L 107/64 Pulse Oximetry 92 95 Oxygen Delivery 02/02/24 01:14 02/02/24 01:15 02/02/24 01:17 Temperature Pulse Rate 74 89 68 Respiratory Rate 22 H 25 H 22 H Blood Pressure 118/63 131/58 L Pulse Oximetry 93 93 95 Oxygen Delivery 02/02/24 01:30 02/02/24 01:32 02/02/24 01:45 Temperature Pulse Rate 100 89 80 Respiratory Rate 24 H 17 24 H Blood Pressure 113/67 Pulse Oximetry 96 Oxygen Delivery 02/02/24 01:47 02/02/24 02:00 02/02/24 02:01 Temperature Pulse Rate 74 80 80 Respiratory Rate 22 H 22 H 19 Blood Pressure 118/81 122/61 Pulse Oximetry 97 96 95 Oxygen Delivery 02/02/24 02:15 02/02/24 02:16 02/02/24 02:18 Temperature Pulse Rate 95 82 98 Respiratory Rate 25 H 22 H 15 Blood Pressure 123/61 132/74 Pulse Oximetry 93 98 93 Oxygen Delivery 02/02/24 02:22 02/02/24 02:27 02/02/24 02:30 Temperature Pulse Rate 119 H 77 79 Respiratory Rate 26 H 22 H 20 Blood Pressure 68/46 L 98/65 L Pulse Oximetry 95 96 Oxygen Delivery 02/02/24 02:31 02/02/24 02:46 02/02/24 03:16 Temperature Pulse Rate 80 78 78 Respiratory Rate 22 H 21 H 20 Blood Pressure 105/86 130/63 131/72 Pulse Oximetry 92 93 94 Oxygen Delivery 02/02/24 03:33 02/02/24 03:36 02/02/24 03:45 Temperature Pulse Rate 105 H 98 121 H Respiratory Rate 28 H 26 H 19 Blood Pressure 145/83 H 120/69 Pulse Oximetry 92 Oxygen Delivery 02/02/24 03:47 02/02/24 04:00 02/02/24 04:02 Temperature Pulse Rate 77 85 Respiratory Rate 21 H 33 H Blood Pressure 98/58 L 125/76 Pulse Oximetry Oxygen Delivery 02/02/24 05:55 02/02/24 09:05 02/02/24 10:48 Temperature 98.4 F 98.7 F Pulse Rate 83 84 Respiratory Rate 20 16 Blood Pressure 131/66 136/66 Pulse Oximetry 92 95 Oxygen Delivery Room Air 02/02/24 10:48 02/02/24 10:48 Temperature Pulse Rate Respiratory Rate Blood Pressure 158/86 H 112/80 Pulse Oximetry Oxygen Delivery Intake/Output Intake/Output: Intake & Output 01/30/24 01/31/24 02/01/24 02/02/24 23:59 23:59 23:59 23:59 Intake Total 3100 Output Total 400 Balance 2700 Meds/Results Medications: Active Medications Generic Name Dose Route Start Last Admin Trade Name Freq PRN Reason Stop Dose Admin Heparin Sodium (Porcine) 5,000 units 02/02/24 09:00 02/02/24 09:05 Heparin Sodium 5,000 Units/Ml Vial SUB-Q 5,000 units Q12HR BELIA Administration Sodium Chloride 1,000 mls @ 125 mls/hr 02/02/24 03:50 02/02/24 06:01 Normal Saline Iv IV CONT 125 mls/hr .Q8H BELIA Administration Lorazepam 2 mg 02/02/24 06:50 Lorazepam Inj (*Crx) 2 Mg/Ml Vial IV PUSH Q2H PRN CIWA > 15 Ondansetron HCl 4 mg 02/02/24 03:49 Ondansetron Inj 4 Mg/2 Ml Vial IV PUSH Q4H PRN Nausea Perflutren Lipid Microsphere 0 ml 02/02/24 06:26 Perflutren Lipid Microspheres 1.5 Ml Vial Diluted To 10 Ml Total Volume IV PUSH 02/05/24 06:27 ONCE PRN adequate visualization Protocol Rosuvastatin Calcium 10 mg 02/02/24 21:00 Rosuvastatin 10 Mg Tablet PO HS BELIA Thiamine HCl 100 mg 02/02/24 09:00 02/02/24 09:05 Thiamine Hcl 200 Mg/2 Ml Vial IV PUSH 100 mg DAILY BELIA Administration Radiology Results: ITS Impressions Chest X-Ray 02/02/24 06:08 Impression: Clear lungs. Labs Labs: Laboratory Results - last 24 hr 02/01/24 02/02/24 02/02/24 23:26 03:58 04:05 WBC 5.5 RBC 3.86 L Hgb 14.5 Hct 41.7 L MCV 108.0 H MCH 37.6 H MCHC 34.8 RDW 13.3 Plt Count 110 L MPV 11.8 H Immature Gran % (Auto) Not Reportable Neut % (Auto) Not Reportable Lymph % (Auto) Not Reportable [place] % (Auto) Not Reportable Eos % (Auto) Not Reportable Baso % (Auto) Not Reportable Lymph # (Auto) Not Reportable [place] # (Auto) Not Reportable Eos # (Auto) Not Reportable Baso # (Auto) Not Reportable Abs Immat Gran (auto) Not Reportable Absolute Neuts (auto) Not Reportable Absolute Nucleated RBC Not Reportable Total Counted 100 Neutrophils % (Manual) 67 Band Neutrophils % 1 Lymphocytes % (Manual) 19.0 Monocytes % (Manual) 8 Eosinophils % (Manual) 3 Basophils % (Manual) 2 H Nucleated RBC % Not Reportable Abs Neuts (Manual) 3.74 Abs Lymphs (Manual) 1.04 L Abs Monocytes (Manual) 0.44 Absolute Eos (Manual) 0.16 Abs Basophils (Manual) 0.11 H Atypical Lymphocytes Present Smudge Cells Present Platelet Estimate Decreased Clumped Platelets Present Giant Platelets Present % Immature Plt Fraction 12.7 H Anisocytosis 1+ Stomatocytes 1+ Schistocytes None seen Sodium 139 139 Potassium 3.0 L 3.1 L Chloride 95 L 101 Carbon Dioxide 25 20 L Anion Gap 19 H 18 H BUN 11 10 Creatinine 0.90 0.90 Estim Creat Clear Calc Not Reportable Not Reportable Estimated GFR > 60 > 60 Glucose 91 86 POC Capillary Glucose Lactic Acid 2.8 H 2.7 H Calcium 9.0 8.0 L Magnesium 2.1 Total Bilirubin 1.4 H AST 136 H ALT 68 H Alkaline Phosphatase 76 Troponin I < 0.012 < 0.012 NT-Pro-B Natriuret Pep 38 Total Protein 8.0 Albumin 4.8 Vitamin B12 648.0 Folate 3.7 Urine Color Dark yellow Urine Appearance Clear Urine pH 5.5 Ur Specific [place] 1.020 Urine Protein 2+ H Urine Glucose (UA) Negative Urine Ketones 3+ H Ur Blood (Man) 3+ H Urine Nitrate Negative Urine Bilirubin Negative Urine Urobilinogen 1.0 Leukocyte Esterase Rfl Negative Urine RBC >100 H Urine WBC 0-5 Ur Squamous Epith Cells None seen Urine Bacteria None seen Urine Casts 3-5 Ethyl Alcohol 106 02/02/24 02/02/24 06:55 11:19 WBC RBC Hgb Hct MCV MCH MCHC RDW Plt Count MPV Immature Gran % (Auto) Neut % (Auto) Lymph % (Auto) [place] % (Auto) Eos % (Auto) Baso % (Auto) Lymph # (Auto) [place] # (Auto) Eos # (Auto) Baso # (Auto) Abs Immat Gran (auto) Absolute Neuts (auto) Absolute Nucleated RBC Total Counted Neutrophils % (Manual) Band Neutrophils % Lymphocytes % (Manual) Monocytes % (Manual) Eosinophils % (Manual) Basophils % (Manual) Nucleated RBC % Abs Neuts (Manual) Abs Lymphs (Manual) Abs Monocytes (Manual) Absolute Eos (Manual) Abs Basophils (Manual) Atypical Lymphocytes Smudge Cells Platelet Estimate Clumped Platelets Giant Platelets % Immature Plt Fraction Anisocytosis Stomatocytes Schistocytes Sodium Potassium Chloride Carbon Dioxide Anion Gap BUN Creatinine Estim Creat Clear Calc Estimated GFR Glucose POC Capillary Glucose 82 Lactic Acid Calcium Magnesium 1.8 Total Bilirubin AST ALT Alkaline Phosphatase Troponin I NT-Pro-B Natriuret Pep Total Protein Albumin Vitamin B12 Folate Urine Color Urine Appearance Urine pH Ur Specific [place] Urine Protein Urine Glucose (UA) Urine Ketones Ur Blood (Man) Urine Nitrate Urine Bilirubin Urine Urobilinogen Leukocyte Esterase Rfl Urine RBC Urine WBC Ur Squamous Epith Cells Urine Bacteria Urine Casts Ethyl Alcohol Quality VTE Prophylaxis VTE prophylaxis: mechanical ordered and pharmacologic ordered
--- NOTE | 2024-02-02 16:17 | PM.CNGS ---
Assessment and Plan Assessment and plan (1) Abnormal findings on diagnostic imaging of gallbladder: Code(s): R93.2 - Abnormal findings on diagnostic imaging of liver and biliary tract Status: Acute Assessment and Plan: Findings on CT with gallbladder distention are likely incidental. The gallbladder distention could be related to his fasting. He has not had any abdominal pain and his abdominal exam is completely benign. There is no indication for surgical intervention at this time. (2) High anion gap metabolic acidosis: Code(s): E87.29 - Other acidosis Status: Acute (3) Alcohol intoxication: Code(s): F10.929 - Alcohol use, unspecified with intoxication, unspecified Status: Acute Plan I have discussed the patient's case and plan of care with Dr. Limon. History of Present Illness Consult details Consult date: 02/02/24 Reason for consult: other (Possible cholecystitis on CT) Requesting physician: Twan Rivera MD Narrative: This is a 63-year-old man with PMH of alcohol dependence, glaucoma, dyslipidemia, who we have been asked to see in surgical consultation for possible cholecystitis. He came into the ED overnight with complaints of intermittent dizziness aggravated by positional changes. Labs in the ED showed a normal white blood cell count of 5500, potassium 3.0, anion gap 19, lactic acid 2.8, total bilirubin 1.4, AST 136, ALT 68. Troponin negative x2. Ethyll alcohol 106. CT scan of the chest abdomen and pelvis showed gallbladder distension with sludge versus stones, and diffuse hepatic steatosis. Our service has now been consulted and he is seen on the medical floor. He denies any abdominal pain, nausea, or vomiting. He reportedly does not eat much most days and only 1 meal per day. He states he has not eaten in the past few days. Review of Systems Review of Systems: All systems reviewed & are unremarkable except as noted in HPI and below [facility] Family History Family History Mother Lung cancer Father Chronic obstructive pulmonary disease Cerebrovascular accident Social History Social History Years smoked: 1 Smoking status: Former smoker Alcohol intake: current Drinks per week: 21 Substance use type: does not use Do You Feel Safe in your Home?: Yes Lack of Transportation: No Lack of Food: Never True Current Housing: I Have Housing Concerned About Future Housing: No Difficulty Paying Gas/Electric Bills: No Difficulty Paying for Meds: No Currently Unemployed: No Education: Bachelor's Degree Difficulty w/ Childcare or Family Care: No Spiritual care concerns: No Meds Home Medications and Allergies Home Medications Medication Instructions Recorded Confirmed Type bimatoprost 0.01 % eye drops 1 drp EACH EYE HS 02/02/24 02/02/24 History (Mary Anne) rosuvastatin 10 mg tablet 10 mg PO HS 02/02/24 02/02/24 History Allergies Allergy/AdvReac Type Severity Reaction Status Date / Time No Known Allergies Allergy Verified 02/02/24 03:48 Vital Signs Vital Signs - 24 hr 02/01/24 21:06 02/01/24 21:51 02/01/24 21:54 Temperature 97 F L Pulse Rate 96 80 76 Respiratory Rate 15 19 27 H Blood Pressure 121/83 118/75 Pulse Oximetry 97 95 95 Oxygen Delivery Room Air 02/01/24 22:17 02/01/24 22:30 02/01/24 22:32 Temperature Pulse Rate 69 67 71 Respiratory Rate 18 18 17 Blood Pressure 116/63 115/57 L Pulse Oximetry 93 Oxygen Delivery 02/01/24 22:47 02/01/24 23:02 02/01/24 23:15 Temperature Pulse Rate 85 76 76 Respiratory Rate 21 H 20 19 Blood Pressure 118/71 110/63 Pulse Oximetry 95 97 Oxygen Delivery 02/01/24 23:16 02/01/24 23:44 02/01/24 23:45 Temperature Pulse Rate 77 79 82 Respiratory Rate 21 H Blood Pressure 102/77 117/70 110/60 Pulse Oximetry Oxygen Delivery 02/01/24 23:47 02/02/24 02:14 02/02/24 02:16 Temperature Pulse Rate 117 H 82 98 Respiratory Rate Blood Pressure 75/44 L 123/61 132/74 Pulse Oximetry Oxygen Delivery 02/02/24 02:18 02/01/24 23:32 02/01/24 23:46 Temperature Pulse Rate 128 H 75 83 Respiratory Rate 21 H 23 H Blood Pressure 68/46 L 117/62 117/70 Pulse Oximetry 96 99 Oxygen Delivery 02/01/24 23:48 02/01/24 23:50 02/02/24 00:00 Temperature Pulse Rate 128 H 72 Respiratory Rate 25 H 24 H Blood Pressure 110/60 75/44 L Pulse Oximetry 98 97 Oxygen Delivery 02/02/24 00:02 02/02/24 00:15 02/02/24 00:16 Temperature Pulse Rate 70 75 77 Respiratory Rate 21 H 20 21 H Blood Pressure 116/66 104/63 Pulse Oximetry 96 94 94 Oxygen Delivery 02/02/24 00:30 02/02/24 00:31 02/02/24 00:45 Temperature Pulse Rate 70 70 77 Respiratory Rate 20 21 H 20 Blood Pressure 105/62 Pulse Oximetry 96 97 95 Oxygen Delivery 02/02/24 00:46 02/02/24 01:00 02/02/24 01:01 Temperature Pulse Rate 78 76 73 Respiratory Rate 20 18 16 Blood Pressure 119/66 102/59 L Pulse Oximetry 94 98 Oxygen Delivery 02/02/24 01:05 02/02/24 01:07 02/02/24 01:08 Temperature Pulse Rate 80 101 H 99 Respiratory Rate 20 24 H 21 H Blood Pressure 114/64 76/28 L 107/64 Pulse Oximetry 92 95 Oxygen Delivery 02/02/24 01:14 02/02/24 01:15 02/02/24 01:17 Temperature Pulse Rate 74 89 68 Respiratory Rate 22 H 25 H 22 H Blood Pressure 118/63 131/58 L Pulse Oximetry 93 93 95 Oxygen Delivery 02/02/24 01:30 02/02/24 01:32 02/02/24 01:45 Temperature Pulse Rate 100 89 80 Respiratory Rate 24 H 17 24 H Blood Pressure 113/67 Pulse Oximetry 96 Oxygen Delivery 02/02/24 01:47 02/02/24 02:00 02/02/24 02:01 Temperature Pulse Rate 74 80 80 Respiratory Rate 22 H 22 H 19 Blood Pressure 118/81 122/61 Pulse Oximetry 97 96 95 Oxygen Delivery 02/02/24 02:15 02/02/24 02:16 02/02/24 02:18 Temperature Pulse Rate 95 82 98 Respiratory Rate 25 H 22 H 15 Blood Pressure 123/61 132/74 Pulse Oximetry 93 98 93 Oxygen Delivery 02/02/24 02:22 02/02/24 02:27 02/02/24 02:30 Temperature Pulse Rate 119 H 77 79 Respiratory Rate 26 H 22 H 20 Blood Pressure 68/46 L 98/65 L Pulse Oximetry 95 96 Oxygen Delivery 02/02/24 02:31 02/02/24 02:46 02/02/24 03:16 Temperature Pulse Rate 80 78 78 Respiratory Rate 22 H 21 H 20 Blood Pressure 105/86 130/63 131/72 Pulse Oximetry 92 93 94 Oxygen Delivery 02/02/24 03:33 02/02/24 03:36 02/02/24 03:45 Temperature Pulse Rate 105 H 98 121 H Respiratory Rate 28 H 26 H 19 Blood Pressure 145/83 H 120/69 Pulse Oximetry 92 Oxygen Delivery 02/02/24 03:47 02/02/24 04:00 02/02/24 04:02 Temperature Pulse Rate 77 85 Respiratory Rate 21 H 33 H Blood Pressure 98/58 L 125/76 Pulse Oximetry Oxygen Delivery 02/02/24 05:55 02/02/24 09:05 02/02/24 10:48 Temperature 98.4 F 98.7 F Pulse Rate 83 84 Respiratory Rate 20 16 Blood Pressure 131/66 136/66 Pulse Oximetry 92 95 Oxygen Delivery Room Air 02/02/24 10:48 02/02/24 10:48 02/02/24 14:00 Temperature 98.6 F Pulse Rate 88 Respiratory Rate 20 Blood Pressure 158/86 H 112/80 146/76 H Pulse Oximetry 96 Oxygen Delivery Exam Const: General: comfortable and no acute distress Nutritional Appearance: overweight Orientation/consciousness: patient oriented x3 HENMT: Head: normocephalic and atraumatic Ears: hearing grossly normal bilaterally Mouth: Yes moist mucous membranes Eyes: General: appearance normal, both eyes and all related structures Pupils: Equal, round and reactive pupils present Neck: Neck: normal visual inspection and full ROM Resp: Effort & Inspection: no respiratory distress Auscultation: clear to auscultation bilaterally Cardio: Rate: regular rate Rhythm: regular rhythm Heart sounds: S1 normal heart sound present and S2 normal heart sound present Peripheral pulses: Peripheral pulses 2+ throughout GI: Inspection: non-distended GI Palp: Yes Soft to palpation, No Tenderness to palpation present (GI), No Guarding due to palpation present (GI), Yes No hepatosplenomegaly present and No Rebound tenderness present Auscultation: normal bowel sounds Skin: General skin exam: normal color Neuro: General: moves all extremities and no focal motor deficits Speech: normal speech Motor exam (neuro): 5/5 motor strength present throughout Extrem: General: normal to inspection and no edema Psych: Mental Status: mental status grossly normal Attitude: cooperative Insight: Good insight present (Psych) Judgement: Good judgement present (Psych) Results Labs 02/01/24 23:26 02/02/24 04:05 Labs: Abnormal lab results 02/01/24 02/02/24 02/02/24 Range/Units 23:26 03:58 04:05 RBC 3.86 L (4.6-6.20) M/mm3 Hct 41.7 L (42.0-52.0) % MCV 108.0 H (80-100) fl MCH 37.6 H (26-34) pg Plt Count 110 L (150-375) k/mm3 MPV 11.8 H (7.4-10.4) fl Basophils % (Manual) 2 H (0-1) % Abs Lymphs (Manual) 1.04 L (1.1-4.5) K/mm3 Abs Basophils (Manual) 0.11 H (0.0-0.1) K/mm3 % Immature Plt Fraction 12.7 H (0.9-11.2) % Potassium 3.0 L 3.1 L (3.4-5.0) mmol/L Chloride 95 L (98-107) mmol/L Carbon Dioxide 20 L (22-30) mmol/L Anion Gap 19 H 18 H (4-12) mmol/L Lactic Acid 2.8 H 2.7 H (0.7-2.0) mmol/L Calcium 8.0 L (8.4-10.2) mg/dL Total Bilirubin 1.4 H (0.2-1.3) mg/dL AST 136 H (17-59) U/L ALT 68 H (6-50) U/L Urine Protein 2+ H (Negative) mg/dL Urine Ketones 3+ H (Negative) mg/dL Ur Blood (Man) 3+ H (Negative) Urine RBC >100 H (0-2) /hpf Diabetes panel 02/01/24 02/02/24 Range/Units 23:26 04:05 Sodium 139 139 (137-145) mmol/L Potassium 3.0 L 3.1 L (3.4-5.0) mmol/L Chloride 95 L 101 (98-107) mmol/L Carbon Dioxide 25 20 L (22-30) mmol/L BUN 11 10 (9-20) mg/dL Creatinine 0.90 0.90 (0.7-1.3) mg/dL Glucose 91 86 (65-110) mg/dL Calcium 9.0 8.0 L (8.4-10.2) mg/dL AST 136 H (17-59) U/L ALT 68 H (6-50) U/L Alkaline Phosphatase 76 (38-126) U/L Total Protein 8.0 (6.3-8.2) g/dL Albumin 4.8 (3.5-5.1) g/dL Calcium panel 02/01/24 02/02/24 Range/Units 23:26 04:05 Calcium 9.0 8.0 L (8.4-10.2) mg/dL Albumin 4.8 (3.5-5.1) g/dL Pituitary panel 02/01/24 02/02/24 Range/Units 23:26 04:05 Sodium 139 139 (137-145) mmol/L Potassium 3.0 L 3.1 L (3.4-5.0) mmol/L Chloride 95 L 101 (98-107) mmol/L Carbon Dioxide 25 20 L (22-30) mmol/L BUN 11 10 (9-20) mg/dL Creatinine 0.90 0.90 (0.7-1.3) mg/dL Glucose 91 86 (65-110) mg/dL Calcium 9.0 8.0 L (8.4-10.2) mg/dL Adrenal panel 02/01/24 02/02/24 Range/Units 23:26 04:05 Sodium 139 139 (137-145) mmol/L Potassium 3.0 L 3.1 L (3.4-5.0) mmol/L Chloride 95 L 101 (98-107) mmol/L Carbon Dioxide 25 20 L (22-30) mmol/L BUN 11 10 (9-20) mg/dL Creatinine 0.90 0.90 (0.7-1.3) mg/dL Glucose 91 86 (65-110) mg/dL Calcium 9.0 8.0 L (8.4-10.2) mg/dL Total Bilirubin 1.4 H (0.2-1.3) mg/dL AST 136 H (17-59) U/L ALT 68 H (6-50) U/L Alkaline Phosphatase 76 (38-126) U/L Total Protein 8.0 (6.3-8.2) g/dL Albumin 4.8 (3.5-5.1) g/dL All other labs normal. Imaging Additional studies: ITS Impressions Chest X-Ray 02/02/24 06:08 Impression: Clear lungs. Chest/Abdomen/Pelvis CT 02/02/24 13:17 IMPRESSION: 1. Gallbladder distention, which may be secondary to fasting or acute cholecystitis. Correlate with physical exam. 2. Diffuse hepatic steatosis.
[2024-02-02] MEDS: cefTRIAXone 2 GM/NS 100 ML 2 GM/100 ML BAG IVPB (16:48)
[2024-02-02 17:31] LABS: Glucose Point of Care 85 mg/dl (65-105)
[2024-02-02] MEDS: metroNIDAZOLE 500 MG/ISO 100ML 500 MG/100 ML BAG 100 MG IVPB (17:45)
[2024-02-02] MEDS: ROSUVASTATIN 10 MG TABLET PO (21:08)
[2024-02-03] VITALS (13 sets, daily range): BP systolic 95–152; BP diastolic 57–96; PULSE 71–100; RESP 16–22; TEMP 36.3–37.7; O2SAT 93–97
[2024-02-03 00:08] LABS: Glucose Point of Care 87 mg/dl (65-105)
[2024-02-03] MEDS: metroNIDAZOLE 500 MG/ISO 100ML 500 MG/100 ML BAG 100 MG IVPB ×2 (00:37→08:10)
[2024-02-03] MEDS: SODIUM CHLORIDE 0.9% IV 1,000 ML 125 ML IV CONT ×3 (04:20→23:55)
[2024-02-03 05:27] LABS: Glucose Point of Care 117 mg/dl (65-105)
[2024-02-03 06:49] LABS: Basophils Absolute Auto 0.1 K/mm3 (0.0-0.1); Eosinophils Absolute Auto 0.1 K/mm3 (0-0.3); Eosinophils Percent Auto 0.7 % (0-4.4); Hematocrit 36.4 % (42.0-52.0); Immature Granulocyte Absolute 0.08 K/mm3 (0.00-0.031); Immature Granulocyte Percent A 1.2 % (0-0.5); Immature Platelet Fraction Pct 7.8 % (0.9-11.2); Lymphocytes Absolute Auto 0.92 K/mm3 (0.9-3.2); Lymphocytes Percent Auto 13.3 % (18.3-44.2); Mean Corpuscular Hemoglobin 36.8 pg (26-34); Mean Corpuscular Volume 111.7 fl (80-100); Mean Platelet Volume 11.1 fl (7.4-10.4); Monocytes Percent Auto 14.2 % (2.6-8.5); Neutrophils Absolute Auto 4.8 K/mm3 (1.3-6.7); Neutrophils Percent Auto 69.6 % (45.5-73.1); Nucleated Red Blood Cells Perc 0.4 % (0.0-0.2); Platelet Count Result 121 k/mm3 (150-375); Red Blood Count 3.26 M/mm3 (4.6-6.20); Red Cell Distribution Width 13.4 % (11.5-14.5); White Blood Count 6.9 K/mm3 (4.5-10.0)
[2024-02-03 07:16] LABS: Alanine Aminotransferase 45 U/L (6-50); Albumin Level 3.8 g/dL (3.5-5.1); Alkaline Phosphatase 63 U/L (38-126); Anion Gap 13 mmol/L (4-12); Aspartate Amino Transferase 81 U/L (17-59); Bilirubin,Total 1.2 mg/dL (0.2-1.3); Blood Urea Nitrogen 6 mg/dL (9-20); Calcium 7.7 mg/dL (8.4-10.2); Carbon Dioxide 22 mmol/L (22-30); Chloride 99 mmol/L (98-107); Estimated CRCL calculation 127 ml/min; Estimated Glomerular Filt Rate > 60; Glucose 108 mg/dL (65-110); Potassium 2.7 mmol/L (3.4-5.0); Sodium 134 mmol/L (137-145)
--- NOTE | 2024-02-03 07:27 | P.PNIM_ITS ---
Subjective Date/time seen: 02/03/24 07:27 Interval history: Replenished K 60 meq PO. Will check Mg. Evidence of orthostatic hypertension. Explain lifestyle modification including wearing compression stockings and abdominal binder. Possible discharge tomorrow Review of Systems Review of Systems: All systems reviewed & are unremarkable except as noted in HPI and below Constitutional: Constitutional: Reports body ache(s), Reports fatigue and Denies headache(s) Eyes: Eyes: Reports blurry vision ENT: Reports system reviewed and no additional complaints, except as documented, Reports Normal hearing present, Denies dysphagia, Denies vertigo and Denies headache(s) Cardiovascular: Cardiovascular: Denies leg edema, Reports lightheadedness, Reports dyspnea and Reports dyspnea on exertion Respiratory: Respiratory: Reports hemoptysis, Reports dyspnea and Reports dyspnea on exertion Gastrointestinal: Gastrointestinal: Denies hematochezia, Denies constipation, Denies dysphagia, Denies heartburn, Denies diarrhea and Denies vomiting Genitourinary: Genitourinary: Denies flank pain, Denies urinary frequency and Denies urinary hesitancy Musculoskeletal: Musculoskeletal: Reports abnormal gait Integumentary/Breasts: Skin/Breast: Denies breast mass, Denies dry skin and Denies erythema Neurologic: Reports Normal hearing present, Denies Abnormal speech present, Reports abnormal gait, Denies confusion, Denies vertigo and Denies headache(s) Psychiatric: Psychiatric: Denies confusion and Denies depression Endocrine: Endocrine: Reports fatigue Exam Const: General: No confusion Orientation/consciousness: No confusion HENMT: Ears: TM's normal bilaterally Mouth: Yes moist mucous membranes, Yes dry mucous membranes and Yes Abnormal oral and palatal mucosa present Eyes: Pupils: Equal, round and reactive pupils present EOM: EOMs intact bilaterally Neck: Neck: supple Lymphatic: lymphadenopathy not noted Resp: Auscultation: clear to auscultation bilaterally, no crackles, no rales, no rhonchi and no wheezes Cardio: Rate: regular rate Rhythm: regular rhythm GI: Auscultation: normal bowel sounds : Male General Exam: Yes normal external exam Skin: General skin exam: normal color Neuro: General: No confusion Cranial nerves: Yes Equal, round and reactive pupils present and Yes Normal hearing present Speech: No Abnormal speech present Motor exam (neuro): 5/5 motor strength present throughout, Normal motor muscle tone present throughout and Abnormal motor strength present Extrem: General: normal to inspection Psych: Mental Status: mental status grossly normal Affect: normal affect and Anxious affect present Objective Data Vital Signs Vital Signs: Vital Signs - 24 hr 02/02/24 09:05 02/02/24 10:48 02/02/24 10:48 Temperature 98.7 F Pulse Rate 84 Respiratory Rate 16 Blood Pressure 136/66 158/86 H Pulse Oximetry 95 Oxygen Delivery Room Air 02/02/24 10:48 02/02/24 14:00 02/02/24 18:00 Temperature 98.6 F 98.0 F Pulse Rate 88 82 Respiratory Rate 20 18 Blood Pressure 112/80 146/76 H 149/71 H Pulse Oximetry 96 92 Oxygen Delivery 02/02/24 18:03 02/02/24 18:03 02/02/24 19:33 Temperature Pulse Rate 98 Respiratory Rate Blood Pressure 146/76 H 112/89 Pulse Oximetry Oxygen Delivery 02/02/24 16:00 02/02/24 08:00 02/02/24 21:47 Temperature 100.3 F H Pulse Rate 80 76 80 Respiratory Rate 22 H Blood Pressure 133/62 Pulse Oximetry 95 Oxygen Delivery 02/03/24 00:00 02/03/24 00:23 02/03/24 00:23 Temperature 99.1 F Pulse Rate 79 Respiratory Rate 18 Blood Pressure 126/65 132/66 95/61 L Pulse Oximetry 94 Oxygen Delivery 02/02/24 20:00 02/03/24 00:00 02/03/24 05:57 Temperature 99.8 F H Pulse Rate 80 81 76 Respiratory Rate 22 H Blood Pressure 129/64 Pulse Oximetry 94 Oxygen Delivery 02/03/24 05:57 02/03/24 05:57 02/03/24 05:57 Temperature 99.8 F H Pulse Rate 76 Respiratory Rate 22 H Blood Pressure 129/64 132/63 106/57 L Pulse Oximetry 94 Oxygen Delivery 02/03/24 04:00 Temperature Pulse Rate 71 Respiratory Rate Blood Pressure Pulse Oximetry Oxygen Delivery Intake/Output Intake/Output: Intake & Output 01/31/24 02/01/24 02/02/24 02/03/24 23:59 23:59 23:59 23:59 Intake Total 4540 1080 Output Total 700 825 Balance 3840 255 Meds/Results Medications: Active Medications Generic Name Dose Route Start Last Admin Trade Name Freq PRN Reason Stop Dose Admin Enoxaparin Sodium 40 mg 02/03/24 09:00 Enoxaparin 40 Mg/0.4 Ml Syringe SUB-Q DAILY BELIA Heparin Sodium (Porcine) 5,000 units 02/02/24 09:00 02/02/24 21:08 Heparin Sodium 5,000 Units/Ml Vial SUB-Q 5,000 units Q12HR BELIA Administration Sodium Chloride 1,000 mls @ 125 mls/hr 02/02/24 03:50 02/03/24 04:20 Normal Saline Iv IV CONT 125 mls/hr .Q8H BELIA Administration Ceftriaxone Sodium 2 gm in 100 mls @ 200 mls/hr 02/02/24 16:00 02/02/24 17:20 Rocephin 2 Gm/Ns 100 Ml IVPB Infused Q24H BELIA Infusion Metronidazole 500 mg in 100 mls @ 100 mls/hr 02/02/24 17:00 02/03/24 00:37 Flagyl 500 Mg/Iso Soln 100 Ml IVPB 100 mls/hr Q8H BELIA Administration Lorazepam 2 mg 02/02/24 06:50 Lorazepam Inj (*Crx) 2 Mg/Ml Vial IV PUSH Q2H PRN CIWA > 15 Ondansetron HCl 4 mg 02/02/24 03:49 Ondansetron Inj 4 Mg/2 Ml Vial IV PUSH Q4H PRN Nausea Perflutren Lipid Microsphere 0 ml 02/02/24 06:26 Perflutren Lipid Microspheres 1.5 Ml Vial Diluted To 10 Ml Total Volume IV PUSH 02/05/24 06:27 ONCE PRN adequate visualization Protocol Rosuvastatin Calcium 10 mg 02/02/24 21:00 02/02/24 21:08 Rosuvastatin 10 Mg Tablet PO 10 mg HS BELIA Administration Thiamine HCl 100 mg 02/02/24 09:00 02/02/24 09:05 Thiamine Hcl 200 Mg/2 Ml Vial IV PUSH 100 mg DAILY BELIA Administration Radiology Results: ITS Impressions Chest X-Ray 02/02/24 06:08 Impression: Clear lungs. Chest/Abdomen/Pelvis CT 02/02/24 13:17 IMPRESSION: 1. Gallbladder distention, which may be secondary to fasting or acute cholecysti tis. Correlate with physical exam. 2. Diffuse hepatic steatosis. Abdomen Ultrasound 02/02/24 22:48 IMPRESSION: Fat infiltration of the liver. Echogenic Sludge in the gallbladder. Otherwise, normal limited abdominal ultrasound. Labs Labs: Laboratory Results - last 24 hr 02/02/24 02/02/24 02/02/24 04:05 11:19 12:41 Sodium Potassium Chloride Carbon Dioxide Anion Gap BUN Creatinine Estim Creat Clear Calc Estimated GFR Glucose POC Capillary Glucose 82 Lactic Acid 1.0 Calcium Total Bilirubin AST ALT Alkaline Phosphatase Total Protein Albumin Vitamin B12 648.0 Folate 3.7 02/02/24 02/03/24 02/03/24 17:28 00:04 05:25 Sodium Potassium Chloride Carbon Dioxide Anion Gap BUN Creatinine Estim Creat Clear Calc Estimated GFR Glucose POC Capillary Glucose 85 87 117 H Lactic Acid Calcium Total Bilirubin AST ALT Alkaline Phosphatase Total Protein Albumin Vitamin B12 Folate 02/03/24 06:03 Sodium 134 L Potassium 2.7 L* Chloride 99 Carbon Dioxide 22 Anion Gap 13 H BUN 6 L Creatinine 0.70 Estim Creat Clear Calc 127 Estimated GFR > 60 Glucose 108 POC Capillary Glucose Lactic Acid Calcium 7.7 L Total Bilirubin 1.2 AST 81 H ALT 45 Alkaline Phosphatase 63 Total Protein 6.0 L Albumin 3.8 Vitamin B12 Folate Quality VTE Prophylaxis VTE prophylaxis: mechanical ordered and pharmacologic ordered Hospitalist MIPS Advance Care Plan I have confirmed that the patient's Advanced Care Plan is present, code status is documented, or surrogate decision maker is listed in patient medical record.: Yes Medication Reconciliation I have utilized all available resources to obtain, update and review the patients current medications (includes all prescriptions, OTC, herbals, cannabis, and nutritional supplements).: Yes
[2024-02-03 07:29] LABS: Macrocytosis 2+ (NORMAL); Platelet Estimate Slightly Decreased (Adequate); Schistocytes None Seen
[2024-02-03 07:47] LABS: Magnesium 1.7 mg/dL (1.6-2.3)
[2024-02-03] MEDS: POTASSIUM CHLORIDE 20 MEQ ER TABLET 60 MEQ PO (08:09)
[2024-02-03] MEDS: THIAMINE HCL 200 MG/2 ML VIAL 100 MG IV PUSH (08:10)
[2024-02-03] MEDS: ENOXAPARIN 40 MG/0.4 ML SYRINGE SUB-Q (08:19)
--- NOTE | 2024-02-03 08:40 | P.PNGS_ITS ---
Progress Note: A&P Assessment and Plan (1) Abnormal findings on diagnostic imaging of gallbladder: Code(s): R93.2 - Abnormal findings on diagnostic imaging of liver and biliary tract Status: Acute Assessment and Plan: U/S reviewed and c/w sludge but no evidence of cholecystitis, exam remains completely benign, continue low-fat diet, would discontinue any antibiotics related to cholecystitis, no acute surgical issues, will sign off, call with questions or issues Subjective Subjective Date/Time Seen: 02/03/24 08:40 Interval history: feels good, no abd pain, ángel diet Review of Systems Review of Systems: All systems reviewed & are unremarkable except as noted in HPI and below Exam Const: General: cooperative, comfortable and no acute distress Resp: Auscultation: clear to auscultation bilaterally Cardio: Rate: regular rate Rhythm: regular rhythm GI: Inspection: normal to inspection and non-distended GI Palp: No abdominal tenderness, Yes Soft to palpation, No Tenderness to palpation present (GI), No Guarding due to palpation present (GI) and No Rigid due to palpation Objective Data Vital Signs Vital Signs: Vital Signs - 24 hr 02/02/24 09:05 02/02/24 10:48 02/02/24 10:48 Temperature 37.1 C Pulse Rate 84 Respiratory Rate 16 Blood Pressure 136/66 158/86 H Pulse Oximetry 95 Oxygen Delivery Room Air 02/02/24 10:48 02/02/24 14:00 02/02/24 18:00 Temperature 37.0 C 36.7 C Pulse Rate 88 82 Respiratory Rate 20 18 Blood Pressure 112/80 146/76 H 149/71 H Pulse Oximetry 96 92 Oxygen Delivery 02/02/24 18:03 02/02/24 18:03 02/02/24 19:33 Temperature Pulse Rate 98 Respiratory Rate Blood Pressure 146/76 H 112/89 Pulse Oximetry Oxygen Delivery 02/02/24 16:00 02/02/24 21:47 02/03/24 00:00 Temperature 37.9 C H 37.3 C Pulse Rate 80 80 79 Respiratory Rate 22 H 18 Blood Pressure 133/62 126/65 Pulse Oximetry 95 94 Oxygen Delivery 02/03/24 00:23 02/03/24 00:23 02/02/24 20:00 Temperature Pulse Rate 80 Respiratory Rate Blood Pressure 132/66 95/61 L Pulse Oximetry Oxygen Delivery 02/03/24 00:00 02/03/24 05:57 02/03/24 05:57 Temperature 37.7 C H 37.7 C H Pulse Rate 81 76 76 Respiratory Rate 22 H 22 H Blood Pressure 129/64 129/64 Pulse Oximetry 94 94 Oxygen Delivery 02/03/24 05:57 02/03/24 05:57 02/03/24 04:00 Temperature Pulse Rate 71 Respiratory Rate Blood Pressure 132/63 106/57 L Pulse Oximetry Oxygen Delivery Intake/Output Intake/Output: Intake & Output 01/31/24 02/01/24 02/02/24 02/03/24 23:59 23:59 23:59 23:59 Intake Total 4540 1180 Output Total 700 825 Balance 3840 355 Meds/Results Medications: Active Medications Generic Name Dose Route Start Last Admin Trade Name Freq PRN Reason Stop Dose Admin Enoxaparin Sodium 40 mg 02/03/24 09:00 02/03/24 08:19 Enoxaparin 40 Mg/0.4 Ml Syringe SUB-Q 40 mg DAILY BELIA Administration Sodium Chloride 1,000 mls @ 125 mls/hr 02/02/24 03:50 02/03/24 04:20 Normal Saline Iv IV CONT 125 mls/hr .Q8H BELIA Administration Ceftriaxone Sodium 2 gm in 100 mls @ 200 mls/hr 02/02/24 16:00 02/02/24 17:20 Rocephin 2 Gm/Ns 100 Ml IVPB Infused Q24H BELIA Infusion Metronidazole 500 mg in 100 mls @ 100 mls/hr 02/02/24 17:00 02/03/24 08:10 Flagyl 500 Mg/Iso Soln 100 Ml IVPB 100 mls/hr Q8H BELIA Administration Lorazepam 2 mg 02/02/24 06:50 Lorazepam Inj (*Crx) 2 Mg/Ml Vial IV PUSH Q2H PRN CIWA > 15 Ondansetron HCl 4 mg 02/02/24 03:49 Ondansetron Inj 4 Mg/2 Ml Vial IV PUSH Q4H PRN Nausea Perflutren Lipid Microsphere 0 ml 02/02/24 06:26 Perflutren Lipid Microspheres 1.5 Ml Vial Diluted To 10 Ml Total Volume IV PUSH 02/05/24 06:27 ONCE PRN adequate visualization Protocol Rosuvastatin Calcium 10 mg 02/02/24 21:00 02/02/24 21:08 Rosuvastatin 10 Mg Tablet PO 10 mg HS BELIA Administration Thiamine HCl 100 mg 02/02/24 09:00 02/03/24 08:10 Thiamine Hcl 200 Mg/2 Ml Vial IV PUSH 100 mg DAILY BELIA Administration Radiology Results: ITS Impressions Chest X-Ray 02/02/24 06:08 Impression: Clear lungs. Chest/Abdomen/Pelvis CT 02/02/24 13:17 IMPRESSION: 1. Gallbladder distention, which may be secondary to fasting or acute chol ecystitis. Correlate with physical exam. 2. Diffuse hepatic steatosis. Abdomen Ultrasound 02/02/24 22:48 IMPRESSION: Fat infiltration of the liver. Echogenic Sludge in the gallbladder. Otherwise, normal limited abdominal ultrasound. Labs Labs: Laboratory Results - last 24 hr 02/02/24 02/02/24 02/02/24 04:05 11:19 12:41 WBC RBC Hgb Hct MCV MCH MCHC RDW Plt Count MPV Immature Gran % (Auto) Neut % (Auto) Lymph % (Auto) [place] % (Auto) Eos % (Auto) Baso % (Auto) Lymph # (Auto) [place] # (Auto) Eos # (Auto) Baso # (Auto) Abs Immat Gran (auto) Absolute Neuts (auto) Absolute Nucleated RBC Nucleated RBC % Platelet Estimate % Immature Plt Fraction Macrocytosis Schistocytes Sodium Potassium Chloride Carbon Dioxide Anion Gap BUN Creatinine Estim Creat Clear Calc Estimated GFR Glucose POC Capillary Glucose 82 Lactic Acid 1.0 Calcium Magnesium Total Bilirubin AST ALT Alkaline Phosphatase Total Protein Albumin Vitamin B12 648.0 Folate 3.7 02/02/24 02/03/24 02/03/24 17:28 00:04 05:25 WBC RBC Hgb Hct MCV MCH MCHC RDW Plt Count MPV Immature Gran % (Auto) Neut % (Auto) Lymph % (Auto) [place] % (Auto) Eos % (Auto) Baso % (Auto) Lymph # (Auto) [place] # (Auto) Eos # (Auto) Baso # (Auto) Abs Immat Gran (auto) Absolute Neuts (auto) Absolute Nucleated RBC Nucleated RBC % Platelet Estimate % Immature Plt Fraction Macrocytosis Schistocytes Sodium Potassium Chloride Carbon Dioxide Anion Gap BUN Creatinine Estim Creat Clear Calc Estimated GFR Glucose POC Capillary Glucose 85 87 117 H Lactic Acid Calcium Magnesium Total Bilirubin AST ALT Alkaline Phosphatase Total Protein Albumin Vitamin B12 Folate 02/03/24 06:03 WBC 6.9 RBC 3.26 L Hgb 12.0 L Hct 36.4 L MCV 111.7 H MCH 36.8 H MCHC 33.0 RDW 13.4 Plt Count 121 L MPV 11.1 H Immature Gran % (Auto) 1.2 H Neut % (Auto) 69.6 Lymph % (Auto) 13.3 L [place] % (Auto) 14.2 H Eos % (Auto) 0.7 Baso % (Auto) 1.0 Lymph # (Auto) 0.92 [place] # (Auto) 1.0 H Eos # (Auto) 0.1 Baso # (Auto) 0.1 Abs Immat Gran (auto) 0.08 H Absolute Neuts (auto) 4.8 Absolute Nucleated RBC 0.030 H Nucleated RBC % 0.4 H Platelet Estimate Slightly decreased % Immature Plt Fraction 7.8 Macrocytosis 2+ Schistocytes None seen Sodium 134 L Potassium 2.7 L* Chloride 99 Carbon Dioxide 22 Anion Gap 13 H BUN 6 L Creatinine 0.70 Estim Creat Clear Calc 127 Estimated GFR > 60 Glucose 108 POC Capillary Glucose Lactic Acid Calcium 7.7 L Magnesium 1.7 Total Bilirubin 1.2 AST 81 H ALT 45 Alkaline Phosphatase 63 Total Protein 6.0 L Albumin 3.8 Vitamin B12 Folate
[2024-02-03 11:40] LABS: Glucose Point of Care 155 mg/dl (65-105)
[2024-02-03 17:44] LABS: Glucose Point of Care 173 mg/dl (65-105)
[2024-02-03] MEDS: ROSUVASTATIN 10 MG TABLET PO (20:50)
[2024-02-03 21:13] LABS: Anion Gap 7 mmol/L (4-12); Blood Urea Nitrogen 6 mg/dL (9-20); Calcium 8.5 mg/dL (8.4-10.2); Carbon Dioxide 27 mmol/L (22-30); Chloride 98 mmol/L (98-107); Estimated CRCL calculation 127 ml/min; Estimated Glomerular Filt Rate > 60; Glucose 121 mg/dL (65-110); Potassium 2.9 mmol/L (3.4-5.0); Sodium 132 mmol/L (137-145)
[2024-02-03 21:24] LABS: NT Pro B Type Natriuretic Pept 373 pg/mL (19.9-100)
[2024-02-03] MEDS: POTASSIUM CHLORIDE 20 MEQ ER TABLET 40 MEQ PO (22:15)
[2024-02-03] MEDS: LORazepam INJ (*CRX) 2 MG/ML VIAL IV PUSH (22:16)
[2024-02-04] VITALS (10 sets, daily range): BP systolic 125–138; BP diastolic 67–92; PULSE 50–111; RESP 16–22; TEMP 36.7–37.4; O2SAT 94–97
[2024-02-04 00:15] LABS: Glucose Point of Care 124 mg/dl (65-105)
[2024-02-04 01:49] LABS: Anion Gap 8 mmol/L (4-12); Blood Urea Nitrogen 4 mg/dL (9-20); Calcium 8.3 mg/dL (8.4-10.2); Carbon Dioxide 26 mmol/L (22-30); Chloride 99 mmol/L (98-107); Estimated CRCL calculation 127 ml/min; Estimated Glomerular Filt Rate > 60; Glucose 114 mg/dL (65-110); Sodium 133 mmol/L (137-145)
[2024-02-04 05:52] LABS: Glucose Point of Care 130 mg/dl (65-105)
[2024-02-04 06:55] LABS: Basophils Percent Auto 0.7 % (0.2-1.2); Eosinophils Absolute Auto 0.1 K/mm3 (0-0.3); Hematocrit 35.6 % (42.0-52.0); Immature Granulocyte Absolute 0.08 K/mm3 (0.00-0.031); Immature Granulocyte Percent A 1.4 % (0-0.5); Immature Platelet Fraction Pct 8.3 % (0.9-11.2); Lymphocytes Absolute Auto 0.88 K/mm3 (0.9-3.2); Lymphocytes Percent Auto 14.9 % (18.3-44.2); Mean Corpuscular HGB Conc 33.7 g/dl (32-36); Mean Corpuscular Hemoglobin 37.7 pg (26-34); Mean Corpuscular Volume 111.9 fl (80-100); Mean Platelet Volume 11.5 fl (7.4-10.4); Monocytes Absolute Auto 0.8 K/mm3 (0.1-0.6); Monocytes Percent Auto 13.7 % (2.6-8.5); Neutrophils Percent Auto 68.3 % (45.5-73.1); Nucleated Red Blood Cells Perc 0.5 % (0.0-0.2); Platelet Count Result 117 k/mm3 (150-375); Red Blood Count 3.18 M/mm3 (4.6-6.20); Red Cell Distribution Width 13.1 % (11.5-14.5); White Blood Count 5.9 K/mm3 (4.5-10.0)
[2024-02-04 07:06] LABS: Alanine Aminotransferase 37 U/L (6-50); Albumin Level 3.4 g/dL (3.5-5.1); Alkaline Phosphatase 56 U/L (38-126); Anion Gap 9 mmol/L (4-12); Aspartate Amino Transferase 56 U/L (17-59); Bilirubin,Total 1.1 mg/dL (0.2-1.3); Blood Urea Nitrogen 4 mg/dL (9-20); Calcium 8.1 mg/dL (8.4-10.2); Carbon Dioxide 25 mmol/L (22-30); Chloride 99 mmol/L (98-107); Estimated CRCL calculation 127 ml/min; Estimated Glomerular Filt Rate > 60; Glucose 115 mg/dL (65-110); Sodium 133 mmol/L (137-145)
[2024-02-04 08:01] LABS: Anisocytosis 1+; Platelet Estimate Decreased (Adequate); Schistocytes None Seen
[2024-02-04] MEDS: THIAMINE HCL 200 MG/2 ML VIAL 100 MG IV PUSH (08:22)
[2024-02-04] MEDS: SODIUM CHLORIDE 0.9% IV 1,000 ML 125 ML IV CONT ×2 (08:22→20:09)
[2024-02-04] MEDS: POTASSIUM CHLORIDE 20 MEQ ER TABLET 60 MEQ PO ×2 (08:26→14:47)
[2024-02-04] MEDS: ENOXAPARIN 40 MG/0.4 ML SYRINGE SUB-Q (08:27)
[2024-02-04] MEDS: LORazepam INJ (*CRX) 2 MG/ML VIAL IV PUSH ×5 (08:48→22:10)
--- NOTE | 2024-02-04 08:50 | PC.NURSE ---
Patient assessed and increased CIWA scores noted. Patient is noted to be restless, impulsive, and agitated. Hospitalist made aware. Seizure precautions in place and seizure pads in place. Spouse at bedside and updated to current clinical status. Hospitalist made aware of increased CIWA scoring as well as behaviors. Patient and spouse educated on fall risks. Bed alarm activated and placed on zone two. Call light within reach. Patient and spouse educated to call for any assistance and due to increased tremors noted, patient is at a higher risk falling. Patient educated but reinforcement required.
[2024-02-04] MEDS: FOLIC ACID 1 MG TABLET PO (10:45)
[2024-02-04] MEDS: chlordiazePOXIDE (*CRX) 10 MG CAPSULE PO ×3 (10:45→20:12)
[2024-02-04 12:22] LABS: Magnesium 1.4 mg/dL (1.6-2.3); Potassium 3.2 mmol/L (3.4-5.0)
[2024-02-04 12:23] LABS: Glucose Point of Care 118 mg/dl (65-105)
[2024-02-04] MEDS: MAGNESIUM SULF 2 GM/WATER 50ML 2 GM/50 ML BAG IVPB (14:47)
--- NOTE | 2024-02-04 15:19 | P.PNIM_ITS ---
Progress Note: A&P Assessment and Plan (1) Orthostatic hypotension: Code(s): I95.1 - Orthostatic hypotension Status: Acute (2) Lactic acid acidosis: Code(s): E87.20 - Acidosis, unspecified Status: Acute (3) Alcohol intoxication: Code(s): F10.929 - Alcohol use, unspecified with intoxication, unspecified Status: Acute (4) High anion gap metabolic acidosis: Code(s): E87.29 - Other acidosis Status: Acute Plan HYpotension with lactic acidosis and anion gap metabolic acidosis WBC normal, CXR normal BP wnl, however othostatic this morning ECHO no significant finding, CT Chest/abdomen/pelvis shows 1. Gallbladder distention, which may be secondary to fasting or acute cholecystitis. Correlate with physical exam. 2. Diffuse hepatic steatosis. continue IVF monitor Dizziness and orthostatic hypotension Dehydration vs infection vs r/o cardiac etiology F/u ECHO continue IVF and monitor orthostatic vital signs alcohol intoxication Started Librium tapering dose Started folic acid, thiamine and multivitamins Ativan as needed for anxiety continue IVF and CIWA protocol multivitamin Hypokalemia K 3.1 replaced and monitor Chronic and stable conditions 1.Obesity, BMI 38 2. Dyslipidemia. On Statin 3. Glaucoma. on Bimatoprost Code status. Full Nutrition. Regular DVT prophylaxis Sq Lovenox Subjective Date/time seen: 02/04/24 15:19 Interval history: Discussed with his and she and does patient drinks alcohol daily for very long period of time. He drinks 3-4 shots of rum. 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 Lately he has been having difficulty in ambulation and uses cane. From yesterday his CIWA score has been ranging from 18 to 5. Tapping dose of Librium has been started, including multivitamins and thiamine and folic acid Review of Systems Review of Systems: All systems reviewed & are unremarkable except as noted in HPI and below Constitutional: Constitutional: Reports body ache(s), Reports fatigue and Denies headache(s) Eyes: Eyes: Reports blurry vision ENT: Reports system reviewed and no additional complaints, except as docum ented, Reports Normal hearing present, Denies dysphagia, Denies vertigo and Denies headache(s) Cardiovascular: Cardiovascular: Denies leg edema, Reports lightheadedness, Reports dyspnea and Reports dyspnea on exertion Respiratory: Respiratory: Reports hemoptysis, Reports dyspnea and Reports dyspnea on exertion Gastrointestinal: Gastrointestinal: Denies hematochezia, Denies constipation, Denies dysphagia, Denies heartburn, Denies diarrhea and Denies vomiting Genitourinary: Genitourinary: Denies flank pain, Denies urinary frequency and Denies urinary hesitancy Musculoskeletal: Musculoskeletal: Reports abnormal gait Integumentary/Breasts: Skin/Breast: Denies breast mass, Denies dry skin and Denies erythema Neurologic: Reports Normal hearing present, Denies Abnormal speech present, Reports abnormal gait, Denies confusion, Denies vertigo and Denies headache(s) Psychiatric: Psychiatric: Denies confusion and Denies depression Endocrine: Endocrine: Reports fatigue Exam Const: General: No confusion Orientation/consciousness: No confusion HENMT: Ears: TM's normal bilaterally Mouth: Yes moist mucous membranes, Yes dry mucous membranes and Yes Abnormal oral and palatal mucosa present Eyes: Pupils: Equal, round and reactive pupils present EOM: EOMs intact bilaterally Neck: Neck: supple Lymphatic: lymphadenopathy not noted Resp: Auscultation: clear to auscultation bilaterally, no crackles, no rales, no rhonchi and no wheezes Cardio: Rate: regular rate Rhythm: regular rhythm GI: Auscultation: normal bowel sounds : Male General Exam: Yes normal external exam Skin: General skin exam: normal color Neuro: General: No confusion Cranial nerves: Yes Equal, round and reactive pupils present and Yes Normal hearing present Speech: No Abnormal speech present Motor exam (neuro): 5/5 motor strength present throughout, Normal motor muscle tone present throughout and Abnormal motor strength present Extrem: General: normal to inspection Psych: Mental Status: mental status grossly normal Affect: normal affect and Anxious affect present Objective Data Vital Signs Vital Signs: Vital Signs - 24 hr 02/03/24 18:00 02/03/24 18:19 02/03/24 18:19 Temperature 98.6 F Pulse Rate 85 Pulse Rate [Monitor] Respiratory Rate 16 Blood Pressure 147/65 H 142/75 H 118/67 Pulse Oximetry 97 Oxygen Delivery 02/03/24 16:00 02/03/24 22:00 02/03/24 20:00 Temperature 99.4 F Pulse Rate 99 86 100 Pulse Rate [Monitor] Respiratory Rate 20 Blood Pressure 139/67 Pulse Oximetry 94 Oxygen Delivery 02/04/24 00:00 02/04/24 00:00 02/04/24 01:56 Temperature 98.6 F Pulse Rate 86 50 L Pulse Rate [Monitor] 90 Respiratory Rate 22 H Blood Pressure 134/72 125/67 Pulse Oximetry 94 95 Oxygen Delivery 02/04/24 00:00 02/04/24 04:00 02/04/24 04:00 Temperature Pulse Rate 108 H 87 Pulse Rate [Monitor] 84 Respiratory Rate Blood Pressure Pulse Oximetry Oxygen Delivery 02/04/24 06:00 02/04/24 06:00 02/04/24 06:21 Temperature 99.3 F 99.3 F Pulse Rate 95 95 106 H Pulse Rate [Monitor] Respiratory Rate 22 H 22 H Blood Pressure 135/92 H 135/92 H 125/75 Pulse Oximetry 96 96 97 Oxygen Delivery 02/04/24 08:40 02/04/24 08:45 02/04/24 08:45 Temperature Pulse Rate 83 Pulse Rate [Monitor] Respiratory Rate Blood Pressure Pulse Oximetry 96 Oxygen Delivery Room Air Room Air 02/04/24 12:00 02/04/24 12:00 Temperature 98.9 F Pulse Rate 111 H 96 Pulse Rate [Monitor] Respiratory Rate 18 Blood Pressure 138/77 Pulse Oximetry 94 Oxygen Delivery Intake/Output Intake/Output: Intake & Output 02/01/24 02/02/24 02/03/24 02/04/24 23:59 23:59 23:59 23:59 Intake Total 4540 4000 2630 Output Total 700 1125 150 Balance 3840 2875 2480 Meds/Results Medications: Active Medications Generic Name Dose Route Start Last Admin Trade Name Freq PRN Reason Stop Dose Admin Chlordiazepoxide HCl 40 mg 02/04/24 09:00 02/04/24 14:47 Chlordiazepoxide (*Crx) 10 Mg Capsule PO 02/08/24 08:59 40 mg Q6H BELIA Administration Taper Enoxaparin Sodium 40 mg 02/03/24 09:00 02/04/24 08:27 Enoxaparin 40 Mg/0.4 Ml Syringe SUB-Q 40 mg DAILY BELIA Administration Folic Acid 1 mg 02/04/24 10:00 02/04/24 10:45 Folic Acid 1 Mg Tablet PO 1 mg DAILY BELIA Administration Sodium Chloride 1,000 mls @ 125 mls/hr 02/02/24 03:50 02/04/24 08:22 Normal Saline Iv IV CONT 125 mls/hr .Q8H BELIA Administration Magnesium Sulfate 2 gm in 50 mls @ 25 mls/hr 02/04/24 14:30 02/04/24 14:47 Magnesium Sulf 2 Gm/Water 50ml IVPB 02/04/24 16:29 25 mls/hr ONCE ONE Administration Lorazepam 2 mg 02/02/24 06:50 02/04/24 10:45 Lorazepam Inj (*Crx) 2 Mg/Ml Vial IV PUSH 2 mg Q2H PRN Administration CIWA > 15 Multivitamins/Calcium 1 tablet 02/05/24 09:00 Therapeutic Multivitamins/Minerals Tab (*Bkc) PO QAM BELIA Ondansetron HCl 4 mg 02/02/24 03:49 Ondansetron Inj 4 Mg/2 Ml Vial IV PUSH Q4H PRN Nausea Perflutren Lipid Microsphere 0 ml 02/02/24 06:26 Perflutren Lipid Microspheres 1.5 Ml Vial Diluted To 10 Ml Total Volume IV PUSH 02/05/24 06:27 ONCE PRN adequate visualization Protocol Rosuvastatin Calcium 10 mg 02/02/24 21:00 02/03/24 20:50 Rosuvastatin 10 Mg Tablet PO 10 mg HS BELIA Administration Thiamine HCl 100 mg 02/02/24 09:00 02/04/24 08:22 Thiamine Hcl 200 Mg/2 Ml Vial IV PUSH 100 mg DAILY BELIA Administration Radiology Results: ITS Impressions Chest X-Ray 02/02/24 06:08 Impression: Clear lungs. Chest/Abdomen/Pelvis CT 02/02/24 13:17 IMPRESSION: 1. Gallbladder distention, which may be secondary to fasting or acute cholecystitis. Correlate with physical exam. 2. Diffuse hepatic steatosis. Abdomen Ultrasound 02/02/24 22:48 IMPRESSION: Fat infiltration of the liver. Echogenic Sludge in the gallbladder. Otherwise, normal limited abdominal ultrasound. Labs Labs: Laboratory Results - last 24 hr 02/03/24 02/03/24 02/04/24 17:40 20:41 00:09 WBC RBC Hgb Hct MCV MCH MCHC RDW Plt Count MPV Immature Gran % (Auto) Neut % (Auto) Lymph % (Auto) [place] % (Auto) Eos % (Auto) Baso % (Auto) Lymph # (Auto) [place] # (Auto) Eos # (Auto) Baso # (Auto) Abs Immat Gran (auto) Absolute Neuts (auto) Absolute Nucleated RBC Nucleated RBC % Platelet Estimate % Immature Plt Fraction Anisocytosis Schistocytes Sodium 132 L Potassium 2.9 L Chloride 98 Carbon Dioxide 27 Anion Gap 7 BUN 6 L Creatinine 0.70 Estim Creat Clear Calc 127 Estimated GFR > 60 Glucose 121 H POC Capillary Glucose 173 H 124 H Calcium 8.5 Magnesium Total Bilirubin AST ALT Alkaline Phosphatase NT-Pro-B Natriuret Pep 373 H Total Protein Albumin 02/04/24 02/04/24 02/04/24 01:26 05:48 05:54 WBC 5.9 RBC 3.18 L Hgb 12.0 L Hct 35.6 L MCV 111.9 H MCH 37.7 H MCHC 33.7 RDW 13.1 Plt Count 117 L MPV 11.5 H Immature Gran % (Auto) 1.4 H Neut % (Auto) 68.3 Lymph % (Auto) 14.9 L [place] % (Auto) 13.7 H Eos % (Auto) 1.0 Baso % (Auto) 0.7 Lymph # (Auto) 0.88 L [place] # (Auto) 0.8 H Eos # (Auto) 0.1 Baso # (Auto) 0.0 Abs Immat Gran (auto) 0.08 H Absolute Neuts (auto) 4.0 Absolute Nucleated RBC 0.030 H Nucleated RBC % 0.5 H Platelet Estimate Decreased % Immature Plt Fraction 8.3 Anisocytosis 1+ Schistocytes None seen Sodium 133 L 133 L Potassium 3.0 L 3.0 L Chloride 99 99 Carbon Dioxide 26 25 Anion Gap 8 9 BUN 4 L 4 L Creatinine 0.70 0.70 Estim Creat Clear Calc 127 127 Estimated GFR > 60 > 60 Glucose 114 H 115 H POC Capillary Glucose 130 H Calcium 8.3 L 8.1 L Magnesium Total Bilirubin 1.1 AST 56 ALT 37 Alkaline Phosphatase 56 NT-Pro-B Natriuret Pep Total Protein 6.0 L Albumin 3.4 L 02/04/24 02/04/24 11:16 12:15 WBC RBC Hgb Hct MCV MCH MCHC RDW Plt Count MPV Immature Gran % (Auto) Neut % (Auto) Lymph % (Auto) [place] % (Auto) Eos % (Auto) Baso % (Auto) Lymph # (Auto) [place] # (Auto) Eos # (Auto) Baso # (Auto) Abs Immat Gran (auto) Absolute Neuts (auto) Absolute Nucleated RBC Nucleated RBC % Platelet Estimate % Immature Plt Fraction Anisocytosis Schistocytes Sodium Potassium 3.2 L Chloride Carbon Dioxide Anion Gap BUN Creatinine Estim Creat Clear Calc Estimated GFR Glucose POC Capillary Glucose 118 H Calcium Magnesium 1.4 L Total Bilirubin AST ALT Alkaline Phosphatase NT-Pro-B Natriuret Pep Total Protein Albumin Hospitalist MIPS Advance Care Plan I have confirmed that the patient's Advanced Care Plan is present, code status is documented, or surrogate decision maker is listed in patient medical record.: Yes Medication Reconciliation I have utilized all available resources to obtain, update and review the patients current medications (includes all prescriptions, OTC, herbals, cannabis, and nutritional supplements).: Yes
[2024-02-04 18:38] LABS: Glucose Point of Care 106 mg/dl (65-105)
[2024-02-04] MEDS: ROSUVASTATIN 10 MG TABLET PO (20:13)
[2024-02-05] VITALS (12 sets, daily range): BP systolic 96–139; BP diastolic 76–93; PULSE 71–117; RESP 16–22; TEMP 36.1–37.1; O2SAT 93–98
[2024-02-05 00:47] LABS: Glucose Point of Care 96 mg/dl (65-105)
[2024-02-05] MEDS: chlordiazePOXIDE (*CRX) 10 MG CAPSULE PO ×4 (02:23→21:09)
[2024-02-05] MEDS: SODIUM CHLORIDE 0.9% IV 1,000 ML 125 ML IV CONT ×2 (04:04→17:09)
[2024-02-05 05:40] LABS: Glucose Point of Care 98 mg/dl (65-105)
[2024-02-05 07:13] LABS: Basophils Percent Auto 0.7 % (0.2-1.2); Eosinophils Absolute Auto 0.1 K/mm3 (0-0.3); Eosinophils Percent Auto 2.2 % (0-4.4); Hemoglobin 12.6 g/dL (14.0-18.0); Immature Granulocyte Absolute 0.08 K/mm3 (0.00-0.031); Immature Granulocyte Percent A 1.5 % (0-0.5); Immature Platelet Fraction Pct 6.4 % (0.9-11.2); Lymphocytes Absolute Auto 0.75 K/mm3 (0.9-3.2); Mean Corpuscular HGB Conc 34.1 g/dl (32-36); Mean Corpuscular Hemoglobin 37.6 pg (26-34); Mean Corpuscular Volume 110.4 fl (80-100); Monocytes Absolute Auto 0.7 K/mm3 (0.1-0.6); Monocytes Percent Auto 12.9 % (2.6-8.5); Neutrophils Absolute Auto 3.7 K/mm3 (1.3-6.7); Neutrophils Percent Auto 68.7 % (45.5-73.1); Nucleated Red Blood Cells Perc 0.6 % (0.0-0.2); Platelet Count Result 137 k/mm3 (150-375); Red Blood Count 3.35 M/mm3 (4.6-6.20); Red Cell Distribution Width 13.2 % (11.5-14.5); White Blood Count 5.4 K/mm3 (4.5-10.0)
[2024-02-05 07:39] LABS: Alanine Aminotransferase 35 U/L (6-50); Albumin Level 3.3 g/dL (3.5-5.1); Alkaline Phosphatase 54 U/L (38-126); Anion Gap 7 mmol/L (4-12); Aspartate Amino Transferase 61 U/L (17-59); Carbon Dioxide 27 mmol/L (22-30); Chloride 101 mmol/L (98-107); Estimated CRCL calculation 146 ml/min; Estimated Glomerular Filt Rate > 60; Glucose 121 mg/dL (65-110); Magnesium 1.8 mg/dL (1.6-2.3); Sodium 135 mmol/L (137-145)
[2024-02-05] MEDS: FOLIC ACID 1 MG TABLET PO (08:43)
[2024-02-05] MEDS: THERAPEUTIC MULTIVITAMINS/MINERALS TAB (*BKC) 1 TABLET PO (08:43)
[2024-02-05] MEDS: ENOXAPARIN 40 MG/0.4 ML SYRINGE SUB-Q (08:43)
[2024-02-05 08:45] LABS: Blood Urea Nitrogen < 2 mg/dL (9-20); Phosphorus < 1.0 mg/dL (2.5-4.5)
[2024-02-05] MEDS: THIAMINE HCL 200 MG/2 ML VIAL 100 MG IV PUSH (08:49)
[2024-02-05 09:40] LABS: Macrocytosis 1+ (NORMAL); Platelet Estimate Adequate (Adequate); Schistocytes None Seen
[2024-02-05] MEDS: SODIUM PHOSPHATE 20 MM in DEXTROSE 5% IN WATER 250 ML 50 MM IVPB (11:10)
[2024-02-05] MEDS: POTASSIUM CHLORIDE 20 MEQ ER TABLET 60 MEQ PO (11:11)
[2024-02-05 12:30] LABS: Glucose Point of Care 147 mg/dl (65-105)
--- NOTE | 2024-02-05 14:23 | P.PNIM_ITS ---
Progress Note: A&P Assessment and Plan (1) Orthostatic hypotension: Code(s): I95.1 - Orthostatic hypotension Status: Acute (2) Lactic acid acidosis: Code(s): E87.20 - Acidosis, unspecified Status: Acute (3) Alcohol intoxication: Code(s): F10.929 - Alcohol use, unspecified with intoxication, unspecified Status: Acute (4) High anion gap metabolic acidosis: Code(s): E87.29 - Other acidosis Status: Acute Plan HYpotension with lactic acidosis and anion gap metabolic acidosis WBC normal, CXR normal BP wnl, however othostatic this morning ECHO no significant finding, CT Chest/abdomen/pelvis shows 1. Gallbladder distention, which may be secondary to fasting or acute cholecystitis. Correlate with physical exam. 2. Diffuse hepatic steatosis. continue IVF monitor Dizziness and orthostatic hypotension Dehydration vs infection vs r/o cardiac etiology F/u ECHO continue IVF and monitor orthostatic vital signs alcohol intoxication Started Librium tapering dose Started folic acid, thiamine and multivitamins Ativan as needed for anxiety continue IVF and CIWA protocol multivitamin Hypokalemia K 3.1 replaced and monitor Chronic and stable conditions 1.Obesity, BMI 38 2. Dyslipidemia. On Statin 3. Glaucoma. on Bimatoprost Code status. Full Nutrition. Regular DVT prophylaxis Sq Lovenox Subjective Date/time seen: 02/05/24 14:23 Interval history: Replenished Potassium and Phosphorus.Patient was sleep and calm today. Review of Systems Review of Systems: All systems reviewed & are unremarkable except as noted in HPI and below Constitutional: Constitutional: Reports body ache(s), Reports fatigue and Denies headache(s) Eyes: Eyes: Reports blurry vision ENT: Reports system reviewed and no additional complaints, except as documented, Reports Normal hearing present, Denies dysphagia, Denies vertigo and Denies headache(s) Cardiovascular: Cardiovascular: Denies leg edema, Reports lightheadedness, Reports dyspnea and Reports dyspnea on exertion Respiratory: Respiratory: Reports hemoptysis, Reports dyspnea and Reports dyspnea on exertion Gastrointestinal: Gastrointestinal: Denies hematochezia, Denies constipation, Denies dysphagia, Denies heartburn, Denies diarrhea and Denies vomiting Genitourinary: Genitourinary: Denies flank pain, Denies urinary frequency and Denies urinary hesitancy Musculoskeletal: Musculoskeletal: Reports abnormal gait Integumentary/Breasts: Skin/Breast: Denies breast mass, Denies dry skin and Denies erythema Neurologic: Reports Normal hearing present, Denies Abnormal speech present, Reports abnormal gait, Denies confusion, Denies vertigo and Denies headache(s) Psychiatric: Psychiatric: Denies confusion and Denies depression Endocrine: Endocrine: Reports fatigue Exam Const: General: No confusion Orientation/consciousness: No confusion HENMT: Ears: TM's normal bilaterally Mouth: Yes moist mucous membranes, Yes dry mucous membranes and Yes Abnormal oral and palatal mucosa present Eyes: Pupils: Equal, round and reactive pupils present EOM: EOMs intact bilaterally Neck: Neck: supple Lymphatic: lymphadenopathy not noted Resp: Auscultation: clear to auscultation bilaterally, no crackles, no rales, no rhonchi and no wheezes Cardio: Rate: regular rate Rhythm: regular rhythm GI: Auscultation: normal bowel sounds : Male General Exam: Yes normal external exam Skin: General skin exam: normal color Neuro: General: No confusion Cranial nerves: Yes Equal, round and reactive pupils present and Yes Normal hearing present Speech: No Abnormal speech present Motor exam (neuro): 5/5 motor strength present throughout, Normal motor muscle tone present throughout and Abnormal motor strength present Extrem: General: normal to inspection Psych: Mental Status: mental status grossly normal Affect: normal affect and Anxious affect present Objective Data Vital Signs Vital Signs: Vital Signs - 24 hr 02/04/24 16:00 02/04/24 16:00 02/04/24 20:00 Temperature 98.7 F Pulse Rate 95 96 Pulse Rate [Monitor] 94 Respiratory Rate 16 Blood Pressure 138/84 Pulse Oximetry 94 Oxygen Delivery 02/04/24 20:00 02/04/24 20:00 02/04/24 20:00 Temperature 98.0 F Pulse Rate 94 102 H Pulse Rate [Monitor] Respiratory Rate 20 Blood Pressure 136/86 Pulse Oximetry 96 Oxygen Delivery Room Air 02/05/24 00:00 02/05/24 00:00 02/05/24 00:00 Temperature 97.1 F L 97.1 F L Pulse Rate 96 96 Pulse Rate [Monitor] Respiratory Rate 22 H 22 H Blood Pressure 123/78 123/78 126/79 Pulse Oximetry 96 96 Oxygen Delivery 02/05/24 00:00 02/04/24 20:00 02/05/24 04:00 Temperature Pulse Rate 89 88 Pulse Rate [Monitor] Respiratory Rate Blood Pressure Pulse Oximetry 96 Oxygen Delivery Room Air 02/05/24 04:00 02/05/24 04:00 02/05/24 06:10 Temperature 98.8 F 98.8 F Pulse Rate 89 89 100 Pulse Rate [Monitor] Respiratory Rate 18 18 Blood Pressure 124/77 124/77 120/76 Pulse Oximetry 95 95 95 Oxygen Delivery 02/05/24 08:00 02/05/24 08:00 02/05/24 08:00 Temperature 97.0 F L Pulse Rate 100 71 Pulse Rate [Monitor] Respiratory Rate 20 Blood Pressure 122/79 Pulse Oximetry 96 Oxygen Delivery Room Air 02/05/24 12:00 02/05/24 12:00 02/05/24 13:20 Temperature 97.4 F L Pulse Rate 79 Pulse Rate [Monitor] Respiratory Rate 20 Blood Pressure 139/93 H 136/91 H 128/84 Pulse Oximetry 96 Oxygen Delivery 02/05/24 13:00 Temperature Pulse Rate Pulse Rate [Monitor] Respiratory Rate Blood Pressure 136/91 H Pulse Oximetry Oxygen Delivery Intake/Output Intake/Output: Intake & Output 02/02/24 02/03/24 02/04/24 02/05/24 23:59 23:59 23:59 23:59 Intake Total 4540 4000 4870 1719.6 Output Total 700 1125 2450 2100 Balance 3840 2875 2420 -380.4 Meds/Results Medications: Active Medications Generic Name Dose Route Start Last Admin Trade Name Freq PRN Reason Stop Dose Admin Chlordiazepoxide HCl 30 mg 02/04/24 09:00 02/05/24 08:43 Chlordiazepoxide (*Crx) 10 Mg Capsule PO 02/08/24 08:59 30 mg Q6H BELIA Administration Taper Enoxaparin Sodium 40 mg 02/03/24 09:00 02/05/24 08:43 Enoxaparin 40 Mg/0.4 Ml Syringe SUB-Q 40 mg DAILY BELIA Administration Folic Acid 1 mg 02/04/24 10:00 02/05/24 08:43 Folic Acid 1 Mg Tablet PO 1 mg DAILY BELIA Administration Sodium Chloride 1,000 mls @ 125 mls/hr 02/02/24 03:50 02/05/24 11:20 Normal Saline Iv IV CONT Not Given .Q8H BELIA Sodium Phosphate 20 mm/ 256.6667 mls @ 50 mls/hr 02/05/24 10:01 02/05/24 11:10 Dextrose IVPB 02/05/24 15:08 50 mls/hr ONCE ONE Administration Lorazepam 2 mg 02/02/24 06:50 02/04/24 22:10 Lorazepam Inj (*Crx) 2 Mg/Ml Vial IV PUSH 2 mg Q2H PRN Administration CIWA > 15 Multivitamins/Calcium 1 tablet 02/05/24 09:00 02/05/24 08:43 Therapeutic Multivitamins/Minerals Tab (*Bkc) PO 1 tablet QAM BELIA Administration Ondansetron HCl 4 mg 02/02/24 03:49 Ondansetron Inj 4 Mg/2 Ml Vial IV PUSH Q4H PRN Nausea Rosuvastatin Calcium 10 mg 02/02/24 21:00 02/04/24 20:13 Rosuvastatin 10 Mg Tablet PO 10 mg HS BELIA Administration Thiamine HCl 100 mg 02/02/24 09:00 02/05/24 08:49 Thiamine Hcl 200 Mg/2 Ml Vial IV PUSH 100 mg DAILY BELIA Administration Radiology Results: ITS Impressions Chest X-Ray 02/02/24 06:08 Impression: Clear lungs. Chest/Abdomen/Pelvis CT 02/02/24 13:17 IMPRESSION: 1. Gallbladder distention, which may be secondary to fasting or acute ch olecystitis. Correlate with physical exam. 2. Diffuse hepatic steatosis. Abdomen Ultrasound 02/02/24 22:48 IMPRESSION: Fat infiltration of the liver. Echogenic Sludge in the gallbladder. Otherwise, normal limited abdominal ultrasound. Labs Labs: Laboratory Results - last 24 hr 02/04/24 02/05/24 02/05/24 18:34 00:39 05:25 WBC RBC Hgb Hct MCV MCH MCHC RDW Plt Count MPV Immature Gran % (Auto) Neut % (Auto) Lymph % (Auto) [place] % (Auto) Eos % (Auto) Baso % (Auto) Lymph # (Auto) [place] # (Auto) Eos # (Auto) Baso # (Auto) Abs Immat Gran (auto) Absolute Neuts (auto) Absolute Nucleated RBC Nucleated RBC % Platelet Estimate % Immature Plt Fraction Macrocytosis Schistocytes Sodium Potassium Chloride Carbon Dioxide Anion Gap BUN Creatinine Estim Creat Clear Calc Estimated GFR Glucose POC Capillary Glucose 106 H 96 98 Calcium Phosphorus Magnesium Total Bilirubin AST ALT Alkaline Phosphatase Total Protein Albumin 02/05/24 02/05/24 06:49 11:48 WBC 5.4 RBC 3.35 L Hgb 12.6 L Hct 37.0 L MCV 110.4 H MCH 37.6 H MCHC 34.1 RDW 13.2 Plt Count 137 L MPV 11.0 H Immature Gran % (Auto) 1.5 H Neut % (Auto) 68.7 Lymph % (Auto) 14.0 L [place] % (Auto) 12.9 H Eos % (Auto) 2.2 Baso % (Auto) 0.7 Lymph # (Auto) 0.75 L [place] # (Auto) 0.7 H Eos # (Auto) 0.1 Baso # (Auto) 0.0 Abs Immat Gran (auto) 0.08 H Absolute Neuts (auto) 3.7 Absolute Nucleated RBC 0.030 H Nucleated RBC % 0.6 H Platelet Estimate Adequate % Immature Plt Fraction 6.4 Macrocytosis 1+ Schistocytes None seen Sodium 135 L Potassium 3.0 L Chloride 101 Carbon Dioxide 27 Anion Gap 7 BUN < 2 L Creatinine 0.60 L Estim Creat Clear Calc 146 Estimated GFR > 60 Glucose 121 H POC Capillary Glucose 147 H Calcium 8.0 L Phosphorus < 1.0 L Magnesium 1.8 Total Bilirubin 1.0 AST 61 H ALT 35 Alkaline Phosphatase 54 Total Protein 6.0 L Albumin 3.3 L Quality VTE Prophylaxis VTE prophylaxis: mechanical ordered and pharmacologic ordered Hospitalist MIPS Advance Care Plan I have confirmed that the patient's Advanced Care Plan is present, code status is documented, or surrogate decision maker is listed in patient medical record.: Yes Medication Reconciliation I have utilized all available resources to obtain, update and review the patients current medications (includes all prescriptions, OTC, herbals, cannabis, and nutritional supplements).: Yes
[2024-02-05 18:20] LABS: Glucose Point of Care 96 mg/dl (65-105)
[2024-02-05] MEDS: ROSUVASTATIN 10 MG TABLET PO (21:09)
[2024-02-06] VITALS (10 sets, daily range): BP systolic 100–141; BP diastolic 64–97; PULSE 69–151; RESP 18–20; TEMP 36.1–36.8; O2SAT 93–96
[2024-02-06] MEDS: SODIUM CHLORIDE 0.9% IV 1,000 ML 125 ML IV CONT (00:39)
[2024-02-06] MEDS: chlordiazePOXIDE (*CRX) 10 MG CAPSULE PO ×4 (03:09→20:37)
[2024-02-06 04:44] LABS: Glucose Point of Care 104 mg/dl (65-105)
[2024-02-06 06:05] LABS: Glucose Point of Care 93 mg/dl (65-105)
[2024-02-06 06:38] LABS: Basophils Absolute Auto 0.1 K/mm3 (0.0-0.1); Basophils Percent Auto 1.2 % (0.2-1.2); Eosinophils Absolute Auto 0.1 K/mm3 (0-0.3); Eosinophils Percent Auto 2.5 % (0-4.4); Hematocrit 35.9 % (42.0-52.0); Hemoglobin 11.8 g/dL (14.0-18.0); Immature Granulocyte Absolute 0.08 K/mm3 (0.00-0.031); Immature Granulocyte Percent A 1.4 % (0-0.5); Lymphocytes Absolute Auto 0.98 K/mm3 (0.9-3.2); Lymphocytes Percent Auto 17.2 % (18.3-44.2); Mean Corpuscular HGB Conc 32.9 g/dl (32-36); Mean Corpuscular Hemoglobin 36.6 pg (26-34); Mean Corpuscular Volume 111.5 fl (80-100); Mean Platelet Volume 10.8 fl (7.4-10.4); Monocytes Percent Auto 16.8 % (2.6-8.5); Neutrophils Absolute Auto 3.5 K/mm3 (1.3-6.7); Neutrophils Percent Auto 60.9 % (45.5-73.1); Platelet Count Result 155 k/mm3 (150-375); Red Blood Count 3.22 M/mm3 (4.6-6.20); Red Cell Distribution Width 13.8 % (11.5-14.5); White Blood Count 5.7 K/mm3 (4.5-10.0)
[2024-02-06 06:50] LABS: Alanine Aminotransferase 33 U/L (6-50); Albumin Level 3.1 g/dL (3.5-5.1); Alkaline Phosphatase 56 U/L (38-126); Anion Gap 4 mmol/L (4-12); Aspartate Amino Transferase 52 U/L (17-59); Bilirubin,Total 0.7 mg/dL (0.2-1.3); Blood Urea Nitrogen 6 mg/dL (9-20); Calcium 8.3 mg/dL (8.4-10.2); Carbon Dioxide 29 mmol/L (22-30); Chloride 103 mmol/L (98-107); Estimated CRCL calculation 127 ml/min; Estimated Glomerular Filt Rate > 60; Glucose 109 mg/dL (65-110); Sodium 136 mmol/L (137-145)
[2024-02-06 07:34] LABS: Macrocytosis 1+ (NORMAL); Platelet Estimate Adequate (Adequate); Schistocytes None Seen
[2024-02-06] MEDS: ENOXAPARIN 40 MG/0.4 ML SYRINGE SUB-Q (09:17)
[2024-02-06] MEDS: THIAMINE HCL 200 MG/2 ML VIAL 100 MG IV PUSH (09:17)
[2024-02-06] MEDS: FOLIC ACID 1 MG TABLET PO (09:17)
[2024-02-06] MEDS: THERAPEUTIC MULTIVITAMINS/MINERALS TAB (*BKC) 1 TABLET PO (09:17)
--- NOTE | 2024-02-06 10:17 | P.PNIM_ITS ---
Progress Note: A&P Assessment and Plan (1) Orthostatic hypotension: Code(s): I95.1 - Orthostatic hypotension Status: Acute (2) Lactic acid acidosis: Code(s): E87.20 - Acidosis, unspecified Status: Acute (3) Alcohol intoxication: Code(s): F10.929 - Alcohol use, unspecified with intoxication, unspecified Status: Acute (4) High anion gap metabolic acidosis: Code(s): E87.29 - Other acidosis Status: Acute Plan HYpotension with lactic acidosis and anion gap metabolic acidosis WBC normal, CXR normal BP wnl, however othostatic this morning ECHO no significant finding, CT Chest/abdomen/pelvis shows 1. Gallbladder distention, which may be secondary to fasting or acute cholecystitis. Correlate with physical exam. 2. Diffuse hepatic steatosis. continue IVF monitor Decreased mobility Ordered MRI of brain and spine Dizziness and orthostatic hypotension Dehydration vs infection vs r/o cardiac etiology F/u ECHO continue IVF and monitor orthostatic vital signs alcohol intoxication Started Librium tapering dose Started folic acid, thiamine and multivitamins Ativan as needed for anxiety continue IVF and CIWA protocol multivitamin Hypokalemia K 3.0 replaced and monitor Chronic and stable conditions 1.Obesity, BMI 38 2. Dyslipidemia. On Statin 3. Glaucoma. on Bimatoprost Code status. Full Nutrition. Regular DVT prophylaxis Sq Lovenox Subjective Date/time seen: 02/06/24 10:17 Interval history: Patient was concerned patient mobility has been significantly declined. PT OT also report his ambulation has been declined. During the evaluation no signs of any focal deficits. Serum vitamin B12 level is normal and ordered folic acid level. Patient has a chronic history of alcoholism which can cause chronic neuropathy. Review of Systems Review of Systems: All systems reviewed & are unremarkable except as noted in HPI and below Constitutional: Constitutional: Reports body ache(s), Reports fatigue and Denies headache(s) Eyes: Eyes: Reports blurry vision ENT: Reports system reviewed and no additional complaints, except as documented, Reports Normal hearing present, Denies dysphagia, Denies vertigo and Denies headache(s) Cardiovascular: Cardiovascular: Denies leg edema, Reports lightheadedness, Reports dyspnea and Reports dyspnea on exertion Respiratory: Respiratory: Reports hemoptysis, Reports dyspnea and Reports dyspnea on exertion Gastrointestinal: Gastrointestinal: Denies hematochezia, Denies constipation, Denies dysphagia, Denies heartburn, Denies diarrhea and Denies vomiting Genitourinary: Genitourinary: Denies flank pain, Denies urinary frequency and Denies urinary hesitancy Musculoskeletal: Musculoskeletal: Reports abnormal gait Integumentary/Breasts: Skin/Breast: Denies breast mass, Denies dry skin and Denies erythema Neurologic: Reports Normal hearing present, Denies Abnormal speech present, Reports abnormal gait, Denies confusion, Denies vertigo and Denies headache(s) Psychiatric: Psychiatric: Denies confusion and Denies depression Endocrine: Endocrine: Reports fatigue Exam Const: General: No confusion Orientation/consciousness: No confusion HENMT: Ears: TM's normal bilaterally Mouth: Yes moist mucous membranes, Yes dry mucous membranes and Yes Abnormal oral and palatal mucosa present Eyes: Pupils: Equal, round and reactive pupils present EOM: EOMs intact bi laterally Neck: Neck: supple Lymphatic: lymphadenopathy not noted Resp: Auscultation: clear to auscultation bilaterally, no crackles, no rales, no rhonchi and no wheezes Cardio: Rate: regular rate Rhythm: regular rhythm GI: Auscultation: normal bowel sounds : Male General Exam: Yes normal external exam Skin: General skin exam: normal color Neuro: General: No confusion Cranial nerves: Yes Equal, round and reactive pupils present and Yes Normal hearing present Speech: No Abnormal speech present Motor exam (neuro): 5/5 motor strength present throughout, Normal motor muscle tone present throughout and Abnormal motor strength present Extrem: General: normal to inspection Psych: Mental Status: mental status grossly normal Affect: normal affect an d Anxious affect present Objective Data Vital Signs Vital Signs: Vital Signs - 24 hr 02/05/24 12:00 02/05/24 12:00 02/05/24 13:20 Temperature 97.4 F L Pulse Rate 79 Respiratory Rate 20 Blood Pressure 139/93 H 136/91 H 128/84 Pulse Oximetry 96 Oxygen Delivery 02/05/24 13:00 02/05/24 16:00 02/05/24 12:00 Temperature 97.4 F L Pulse Rate 79 86 Respiratory Rate 20 Blood Pressure 136/91 H 128/84 Pulse Oximetry 96 Oxygen Delivery 02/05/24 20:37 02/05/24 20:00 02/05/24 20:00 Temperature 98.0 F Pulse Rate 117 H 102 H Respiratory Rate 18 Blood Pressure 96/81 L Pulse Oximetry 93 Oxygen Delivery Room Air 02/06/24 00:00 02/05/24 23:58 02/05/24 23:59 Temperature 97.7 F Pulse Rate 94 82 102 H Respiratory Rate 16 Blood Pressure 125/79 135/82 Pulse Oximetry 98 Oxygen Delivery 02/06/24 00:00 02/06/24 04:00 02/06/24 04:44 Temperature 97.9 F Pulse Rate 151 H 89 96 Respiratory Rate 20 Blood Pressure 129/83 117/64 Pulse Oximetry 95 Oxygen Delivery 02/06/24 08:00 Temperature 97.4 F L Pulse Rate 69 Respiratory Rate 20 Blood Pressure 134/86 Pulse Oximetry 94 Oxygen Delivery Intake/Output Intake/Output: Intake & Output 02/03/24 02/04/24 02/05/24 02/06/24 23:59 23:59 23:59 23:59 Intake Total 4000 4870 3466.3 1997.5 Output Total 1125 2450 3000 400 Balance 2875 2420 466.3 1597.5 Meds/Results Medications: Active Medications Generic Name Dose Route Start Last Admin Trade Name Freq PRN Reason Stop Dose Admin Chlordiazepoxide HCl 20 mg 02/04/24 09:00 02/06/24 09:17 Chlordiazepoxide (*Crx) 10 Mg Capsule PO 02/08/24 08:59 20 mg Q6H BELIA Administration Taper Enoxaparin Sodium 40 mg 02/03/24 09:00 02/06/24 09:17 Enoxaparin 40 Mg/0.4 Ml Syringe SUB-Q 40 mg DAILY BELIA Administration Folic Acid 1 mg 02/04/24 10:00 02/06/24 09:17 Folic Acid 1 Mg Tablet PO 1 mg DAILY BELIA Administration Sodium Chloride 1,000 mls @ 125 mls/hr 02/02/24 03:50 02/06/24 00:39 Normal Saline Iv IV CONT 125 mls/hr .Q8H BELIA Administration Lorazepam 2 mg 02/02/24 06:50 02/04/24 22:10 Lorazepam Inj (*Crx) 2 Mg/Ml Vial IV PUSH 2 mg Q2H PRN Administration CIWA > 15 Multivitamins/Calcium 1 tablet 02/05/24 09:00 02/06/24 09:17 Therapeutic Multivitamins/Minerals Tab (*Bkc) PO 1 tablet QAM BELIA Administration Ondansetron HCl 4 mg 02/02/24 03:49 Ondansetron Inj 4 Mg/2 Ml Vial IV PUSH Q4H PRN Nausea Rosuvastatin Calcium 10 mg 02/02/24 21:00 02/05/24 21:09 Rosuvastatin 10 Mg Tablet PO 10 mg HS BELIA Administration Thiamine HCl 100 mg 02/02/24 09:00 02/06/24 09:17 Thiamine Hcl 200 Mg/2 Ml Vial IV PUSH 100 mg DAILY BELIA Administration Radiology Results: ITS Impressions Chest X-Ray 02/02/24 06:08 Impression: Clear lungs. Chest/Abdomen/Pelvis CT 02/02/24 13:17 IMPRESSION: 1. Gallbladder distention, which may be secondary to fasting or acute cholecystitis. Correlate with physical exam. 2. Diffuse hepatic steatosis. Abdomen Ultrasound 02/02/24 22:48 IMPRESSION: Fat infiltration of the liver. Echogenic Sludge in the gallbladder. Otherwise, normal limited abdominal ultrasound. Labs Labs: Laboratory Results - last 24 hr 02/05/24 02/05/24 02/06/24 11:48 18:09 00:09 WBC RBC Hgb Hct MCV MCH MCHC RDW Plt Count MPV Immature Gran % (Auto) Neut % (Auto) Lymph % (Auto) [place] % (Auto) Eos % (Auto) Baso % (Auto) Lymph # (Auto) [place] # (Auto) Eos # (Auto) Baso # (Auto) Abs Immat Gran (auto) Absolute Neuts (auto) Absolute Nucleated RBC Nucleated RBC % Platelet Estimate Macrocytosis Schistocytes Sodium Potassium Chloride Carbon Dioxide Anion Gap BUN Creatinine Estim Creat Clear Calc Estimated GFR Glucose POC Capillary Glucose 147 H 96 104 Calcium Total Bilirubin AST ALT Alkaline Phosphatase Total Protein Albumin 02/06/24 02/06/24 04:47 06:08 WBC 5.7 RBC 3.22 L Hgb 11.8 L Hct 35.9 L MCV 111.5 H MCH 36.6 H MCHC 32.9 RDW 13.8 Plt Count 155 MPV 10.8 H Immature Gran % (Auto) 1.4 H Neut % (Auto) 60.9 Lymph % (Auto) 17.2 L [place] % (Auto) 16.8 H Eos % (Auto) 2.5 Baso % (Auto) 1.2 Lymph # (Auto) 0.98 [place] # (Auto) 1.0 H Eos # (Auto) 0.1 Baso # (Auto) 0.1 Abs Immat Gran (auto) 0.08 H Absolute Neuts (auto) 3.5 Absolute Nucleated RBC 0.000 Nucleated RBC % 0.0 Platelet Estimate Adequate Macrocytosis 1+ Schistocytes None seen Sodium 136 L Potassium 3.0 L Chloride 103 Carbon Dioxide 29 Anion Gap 4 BUN 6 L Creatinine 0.70 Estim Creat Clear Calc 127 Estimated GFR > 60 Glucose 109 POC Capillary Glucose 93 Calcium 8.3 L Total Bilirubin 0.7 AST 52 ALT 33 Alkaline Phosphatase 56 Total Protein 6.0 L Albumin 3.1 L Quality VTE Prophylaxis VTE prophylaxis: mechanical ordered and pharmacologic ordered Hospitalist MIPS Advance Care Plan I have confirmed that the patient's Advanced Care Plan is present, code status is documented, or surrogate decision maker is listed in patient medical record.: Yes Medication Reconciliation I have utilized all available resources to obtain, update and review the patients current medications (includes all prescriptions, OTC, herbals, cannabis, and nutritional supplements).: Yes
[2024-02-06 11:41] LABS: Magnesium 1.7 mg/dL (1.6-2.3); Phosphorus 2.2 mg/dL (2.5-4.5)
[2024-02-06 12:01] LABS: Glucose Point of Care 151 mg/dl (65-105)
[2024-02-06] MEDS: POTASSIUM CHLORIDE 20 MEQ PACKET (FOR LIQUID) 60 MEQ PO (13:02)
[2024-02-06 18:20] LABS: Glucose Point of Care 120 mg/dl (65-105)
[2024-02-06] MEDS: ROSUVASTATIN 10 MG TABLET PO (20:37)
[2024-02-06 20:50] LABS: Folic Acid 7.7 ng/mL (2.76->20)
[2024-02-06 21:12] LABS: Glucose Point of Care 133 mg/dl (65-105)
[2024-02-07] VITALS (11 sets, daily range): BP systolic 118–153; BP diastolic 66–80; PULSE 70–110; RESP 16–18; TEMP 36.6–36.8; O2SAT 94–97
[2024-02-07] MEDS: SODIUM CHLORIDE 0.9% IV 1,000 ML 125 ML IV CONT ×2 (01:55→10:11)
[2024-02-07] MEDS: chlordiazePOXIDE (*CRX) 10 MG CAPSULE PO ×4 (01:55→20:35)
[2024-02-07 05:59] LABS: Glucose Point of Care 99 mg/dl (65-105)
[2024-02-07 07:10] LABS: Basophils Absolute Auto 0.1 K/mm3 (0.0-0.1); Eosinophils Absolute Auto 0.1 K/mm3 (0-0.3); Eosinophils Percent Auto 2.7 % (0-4.4); Hematocrit 34.5 % (42.0-52.0); Hemoglobin 11.6 g/dL (14.0-18.0); Immature Granulocyte Absolute 0.06 K/mm3 (0.00-0.031); Immature Granulocyte Percent A 1.2 % (0-0.5); Lymphocytes Absolute Auto 0.91 K/mm3 (0.9-3.2); Lymphocytes Percent Auto 17.8 % (18.3-44.2); Mean Corpuscular HGB Conc 33.6 g/dl (32-36); Mean Corpuscular Hemoglobin 37.8 pg (26-34); Mean Corpuscular Volume 112.4 fl (80-100); Mean Platelet Volume 10.9 fl (7.4-10.4); Neutrophils Absolute Auto 2.9 K/mm3 (1.3-6.7); Neutrophils Percent Auto 57.3 % (45.5-73.1); Platelet Count Result 184 k/mm3 (150-375); Red Blood Count 3.07 M/mm3 (4.6-6.20); Red Cell Distribution Width 14.5 % (11.5-14.5); White Blood Count 5.1 K/mm3 (4.5-10.0)
[2024-02-07 07:21] LABS: Alanine Aminotransferase 34 U/L (6-50); Alkaline Phosphatase 52 U/L (38-126); Anion Gap 6 mmol/L (4-12); Aspartate Amino Transferase 54 U/L (17-59); Bilirubin,Total 0.6 mg/dL (0.2-1.3); Blood Urea Nitrogen 5 mg/dL (9-20); Calcium 8.6 mg/dL (8.4-10.2); Carbon Dioxide 27 mmol/L (22-30); Chloride 105 mmol/L (98-107); Estimated CRCL calculation 127 ml/min; Estimated Glomerular Filt Rate > 60; Glucose 102 mg/dL (65-110); Potassium 3.1 mmol/L (3.4-5.0); Sodium 138 mmol/L (137-145)
[2024-02-07 09:20] LABS: Magnesium 1.8 mg/dL (1.6-2.3)
[2024-02-07] MEDS: POTASSIUM CHLORIDE 20 MEQ ER TABLET 80 MEQ PO (10:12)
[2024-02-07] MEDS: FOLIC ACID 1 MG TABLET PO (10:14)
[2024-02-07] MEDS: THIAMINE HCL 200 MG/2 ML VIAL 100 MG IV PUSH (10:14)
[2024-02-07] MEDS: ENOXAPARIN 40 MG/0.4 ML SYRINGE SUB-Q (10:15)
[2024-02-07] MEDS: THERAPEUTIC MULTIVITAMINS/MINERALS TAB (*BKC) 1 TABLET PO (10:15)
[2024-02-07 10:53] LABS: Potassium 3.6 mmol/L (3.4-5.0)
[2024-02-07 11:33] LABS: Glucose Point of Care 151 mg/dl (65-105)
--- NOTE | 2024-02-07 12:00 | PM.IMPN ---
Progress Note: A&P Assessment and Plan (1) Orthostatic hypotension: Code(s): I95.1 - Orthostatic hypotension Status: Acute (2) Lactic acid acidosis: Code(s): E87.20 - Acidosis, unspecified Status: Acute (3) Alcohol intoxication: Code(s): F10.929 - Alcohol use, unspecified with intoxication, unspecified Status: Acute (4) High anion gap metabolic acidosis: Code(s): E87.29 - Other acidosis Status: Acute Plan HYpotension with lactic acidosis and anion gap metabolic acidosis WBC normal, CXR normal BP wnl, however othostatic this morning ECHO no significant finding, CT Chest/abdomen/pelvis shows 1. Gallbladder distention, which may be secondary to fasting or acute cholecystitis. Correlate with physical exam. 2. Diffuse hepatic steatosis. 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 MRI of cervical, thoracic, lumbar shows severe spondylosis Consulted Neurosurgery awaiting recommendation On aspirin and statin Will defer adding clopidogrel according to Neurology recommendation PT OT Dizziness and orthostatic hypotension Dehydration vs infection vs r/o cardiac etiology Echo: Left ventricle is normal in size and systolic function. The left ventricular ejection fraction is visually estimated to be 50-55%. continue IVF and monitor orthostatic vital signs alcohol intoxication Started Librium tapering dose Started folic acid, thiamine and multivitamins Ativan as needed for anxiety continue IVF and CIWA protocol multivitamin Hypokalemia K 3.0 replaced and monitor Chronic and stable conditions 1.Obesity, BMI 38 2. Dyslipidemia. On Statin 3. Glaucoma. on Bimatoprost Code status. Full Nutrition. Regular DVT prophylaxis Sq Lovenox Subjective Date/time seen: 02/07/24 12:00 Interval history: Patient denies any complaints. His mobility has been decreased possibly due to the course of hospitalization. Neurosurgery is consulted for his severe cervical, thoracic, lumbar spondylosis. His potassium is replaced. Patient also has evidence of small old infarcts in the cerebellum. Neurology consulted. Patient is already on statin. Will add aspirin and defer adding clopidogrel to the neurology recommendation. Review of Systems Review of Systems: All systems reviewed & are unremarkable except as noted in HPI and below Constitutional: Constitutional: Reports body ache(s), Reports fatigue and Denies headache(s) Eyes: Eyes: Reports blurry vision ENT: Reports system reviewed and no additional complaints, except as documented, Reports Normal hearing present, Denies dysphagia, Denies vertigo and Denies headache(s) Cardiovascular: Cardiovascular: Denies leg edema, Reports lightheadedness, Reports dyspnea and Reports dyspnea on exertion Respiratory: Respiratory: Reports hemoptysis, Reports dyspnea and Reports dyspnea on exertion Gastrointestinal: Gastrointestinal: Denies hematochezia, Denies constipation, Denies dysphagia, Denies heartburn, Denies diarrhea and Denies vomiting Genitourinary: Genitourinary: Denies flank pain, Denies urinary frequency and Denies urinary hesitancy Musculoskeletal: Musculoskeletal: Reports abnormal gait Integumentary/Breasts: Skin/Breast: Denies breast mass, Denies dry skin and Denies erythema Neurologic: Reports Normal hearing present, Denies Abnormal speech present, Reports abnormal gait, Denies confusion, Denies vertigo and Denies headache(s) Psychiatric: Psychiatric: Denies confusion and Denies depression Endocrine: Endocrine: Reports fatigue Exam Const: General: No confusion Orientation/consciousness: No confusion HENMT: Ears: TM's normal bilaterally Mouth: Yes moist mucous membranes, Yes dry mucous membranes and Yes Abnormal oral and palatal mucosa present Eyes: Pupils: Equal, round and reactive pupils present EOM: EOMs intact bilaterally Neck: Neck: supple Lymphatic: lymphadenopathy not noted Resp: Auscultation: clear to auscultation bilaterally, no crackles, no rales, no rhonchi and no wheezes Cardio: Rate: regular rate Rhythm: regular rhythm GI: Auscultation: normal bowel sounds : Male General Exam: Yes normal external exam Skin: General skin exam: normal color Neuro: General: No confusion Cranial nerves: Yes Equal, round and reactive pupils present and Yes Normal hearing present Speech: No Abnormal speech present Motor exam (neuro): 5/5 motor strength present throughout, Normal motor muscle tone present throughout and Abnormal motor strength present Extrem: General: normal to inspection Psych: Mental Status: mental status grossly normal Affect: normal affect and Anxious affect present Objective Data Vital Signs Vital Signs: Vital Signs - 24 hr 02/06/24 16:00 02/06/24 20:34 02/06/24 20:00 Temperature 97.6 F 98.0 F Pulse Rate 80 89 Respiratory Rate 20 18 Blood Pressure 130/75 129/73 Pulse Oximetry 96 Oxygen Delivery Room Air 02/06/24 23:38 02/06/24 23:39 02/06/24 20:00 Temperature 98.2 F Pulse Rate 93 78 Respiratory Rate Blood Pressure 141/97 H 129/82 Pulse Oximetry Oxygen Delivery 02/07/24 00:00 02/07/24 04:00 02/07/24 05:25 Temperature Pulse Rate 80 75 73 Respiratory Rate 18 Blood Pressure 153/79 H Pulse Oximetry 96 Oxygen Delivery 02/07/24 08:00 02/07/24 08:00 02/07/24 07:30 Temperature 97.9 F Pulse Rate 85 79 Respiratory Rate 18 Blood Pressure 127/80 Pulse Oximetry 95 Oxygen Delivery Room Air Intake/Output Intake/Output: Intake & Output 02/04/24 02/05/24 02/06/24 02/07/24 23:59 23:59 23:59 23:59 Intake Total 4870 3466.3 4217.5 1668 Output Total 2450 3000 1700 475 Balance 2420 466.3 2517.5 1193 Meds/Results Medications: Active Medications Generic Name Dose Route Start Last Admin Trade Name Freq PRN Reason Stop Dose Admin Chlordiazepoxide HCl 10 mg 02/04/24 09:00 02/07/24 10:14 Chlordiazepoxide (*Crx) 10 Mg Capsule PO 02/08/24 08:59 10 mg Q6H BELIA Administration Taper Enoxaparin Sodium 40 mg 02/03/24 09:00 02/07/24 10:15 Enoxaparin 40 Mg/0.4 Ml Syringe SUB-Q 40 mg DAILY BELIA Administration Folic Acid 1 mg 02/04/24 10:00 02/07/24 10:14 Folic Acid 1 Mg Tablet PO 1 mg DAILY BELIA Administration Sodium Chloride 1,000 mls @ 125 mls/hr 02/02/24 03:50 02/07/24 10:11 Normal Saline Iv IV CONT 125 mls/hr .Q8H BELIA Administration Lorazepam 2 mg 02/02/24 06:50 02/04/24 22:10 Lorazepam Inj (*Crx) 2 Mg/Ml Vial IV PUSH 2 mg Q2H PRN Administration CIWA > 15 Multivitamins/Calcium 1 tablet 02/05/24 09:00 02/07/24 10:15 Therapeutic Multivitamins/Minerals Tab (*Bkc) PO 1 tablet QAM BELIA Administration Ondansetron HCl 4 mg 02/02/24 03:49 Ondansetron Inj 4 Mg/2 Ml Vial IV PUSH Q4H PRN Nausea Rosuvastatin Calcium 10 mg 02/02/24 21:00 02/06/24 20:37 Rosuvastatin 10 Mg Tablet PO 10 mg HS BELIA Administration Thiamine HCl 100 mg 02/02/24 09:00 02/07/24 10:14 Thiamine Hcl 200 Mg/2 Ml Vial IV PUSH 100 mg DAILY BELIA Administration Radiology Results: ITS Impressions Chest X-Ray 02/02/24 06:08 Impression: Clear lungs. Chest/Abdomen/Pelvis CT 02/02/24 13:17 IMPRESSION: 1. Gallbladder distention, which may be secondary to fasting or acute cholecystitis. Correlate with physical exam. 2. Diffuse hepatic steatosis. Abdomen Ultrasound 02/02/24 22:48 IMPRESSION: Fat infiltration of the liver. Echogenic Sludge in the gallbladder. Otherwise, normal limited abdominal ultrasound. Brain MRI 02/07/24 05:54 IMPRESSION: 1. 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 Cervical Spine MRI 02/07/24 06:15 IMPRESSION: 1. Severe cervical spondylosis. Lumbar Spine MRI 02/07/24 06:19 IMPRESSION: 1. Severe lumbar spondylosis. Thoracic Spine MRI 02/07/24 06:24 IMPRESSION: 1. Severe thoracic spondylosis. 2. Cervicothoracic levoscoliosis. 3. Normal spinal cord. Labs Labs: Laboratory Results - last 24 hr 02/06/24 02/06/24 02/06/24 06:06 11:34 18:13 WBC RBC Hgb Hct MCV MCH MCHC RDW Plt Count MPV Immature Gran % (Auto) Neut % (Auto) Lymph % (Auto) [place] % (Auto) Eos % (Auto) Baso % (Auto) Lymph # (Auto) [place] # (Auto) Eos # (Auto) Baso # (Auto) Abs Immat Gran (auto) Absolute Neuts (auto) Absolute Nucleated RBC Nucleated RBC % Sodium Potassium Chloride Carbon Dioxide Anion Gap BUN Creatinine Estim Creat Clear Calc Estimated GFR Glucose POC Capillary Glucose 151 H 120 H Calcium Magnesium Total Bilirubin AST ALT Alkaline Phosphatase Total Protein Albumin Folate 7.7 02/06/24 02/07/24 02/07/24 21:08 05:44 06:26 WBC 5.1 RBC 3.07 L Hgb 11.6 L Hct 34.5 L MCV 112.4 H MCH 37.8 H MCHC 33.6 RDW 14.5 Plt Count 184 MPV 10.9 H Immature Gran % (Auto) 1.2 H Neut % (Auto) 57.3 Lymph % (Auto) 17.8 L [place] % (Auto) 20.0 H Eos % (Auto) 2.7 Baso % (Auto) 1.0 Lymph # (Auto) 0.91 [place] # (Auto) 1.0 H Eos # (Auto) 0.1 Baso # (Auto) 0.1 Abs Immat Gran (auto) 0.06 H Absolute Neuts (auto) 2.9 Absolute Nucleated RBC 0.000 Nucleated RBC % 0.0 Sodium 138 Potassium 3.1 L Chloride 105 Carbon Dioxide 27 Anion Gap 6 BUN 5 L Creatinine 0.70 Estim Creat Clear Calc 127 Estimated GFR > 60 Glucose 102 POC Capillary Glucose 133 H 99 Calcium 8.6 Magnesium 1.8 Total Bilirubin 0.6 AST 54 ALT 34 Alkaline Phosphatase 52 Total Protein 6.0 L Albumin 3.0 L Folate 02/07/24 02/07/24 10:32 11:26 WBC RBC Hgb Hct MCV MCH MCHC RDW Plt Count MPV Immature Gran % (Auto) Neut % (Auto) Lymph % (Auto) [place] % (Auto) Eos % (Auto) Baso % (Auto) Lymph # (Auto) [place] # (Auto) Eos # (Auto) Baso # (Auto) Abs Immat Gran (auto) Absolute Neuts (auto) Absolute Nucleated RBC Nucleated RBC % Sodium Potassium 3.6 Chloride Carbon Dioxide Anion Gap BUN Creatinine Estim Creat Clear Calc Estimated GFR Glucose POC Capillary Glucose 151 H Calcium Magnesium Total Bilirubin AST ALT Alkaline Phosphatase Total Protein Albumin Folate Quality VTE Prophylaxis VTE prophylaxis: mechanical ordered and pharmacologic ordered Hospitalist MIPS Advance Care Plan I have confirmed that the patient's Advanced Care Plan is present, code status is documented, or surrogate decision maker is listed in patient medical record.: Yes Medication Reconciliation I have utilized all available resources to obtain, update and review the patients current medications (includes all prescriptions, OTC, herbals, cannabis, and nutritional supplements).: Yes
[2024-02-07 18:44] LABS: Glucose Point of Care 109 mg/dl (65-105)
[2024-02-07] MEDS: ROSUVASTATIN 10 MG TABLET PO (20:35)
--- NOTE | 2024-02-07 20:42 | WPDNEUROSGCN ---
Assessment and Plan Assessment and plan (1) Spondylosis of cervical spine: Code(s): M47.812 - Spondylosis without myelopathy or radiculopathy, cervical region Status: Acute (2) Lumbar spondylosis: Code(s): M47.816 - Spondylosis without myelopathy or radiculopathy, lumbar region Status: Acute (3) Foraminal stenosis of cervical region: Code(s): M48.02 - Spinal stenosis, cervical region Status: Acute Assessment and Plan: Yoshi is a 63-year-old gentleman who presents with dizziness and potentially syncope and has undergone examination radiographically of his entire spine. I see no compression on the spinal cord or any lesions that would be consistent with his constitutional weakness as a cause. Does have some foraminal stenosis and cervical spine which is moderate. He is not complaining of radicular issues in his upper extremities. There is no need for intervention with regards to his spine. Consult date: 02/07/24 HPI: Yoshi Cramer is a 63 year old male with a past medical history significant for significant alcohol use who presents with a series of falls secondary to lightheadedness and dizziness. Because of constitutional weakness, MRIs were performed was cervical, thoracic and lumbar spines. He does not complain of any significant pain in any part of his neck or back. He does not report specific muscle group weakness or dermatomal numbness. He is not having new bowel or bladder difficulty. He states that he can walk but that he has difficulty with balance and constitutional weakness as well as dizziness. Review of Systems Review of Systems: Review of Systems: All systems review ed & are unremarka ble except as note d in HPI and below Constitutional: Constitutional: Re ports body ache(s) and Reports fatig ue Eyes: Eyes: Reports blur ry vision ENT: Reports system rev iewed and no addit ional complaints, except as document ed, Reports Normal hearing present a nd Denies dysphagi a Cardiovascular: Cardiovascular: De nies leg edema and Reports lighthead edness Respiratory: Respiratory: Repor ts hemoptysis, Rep orts dyspnea and R eports dyspnea on exertion Gastrointestinal: Gastrointestinal: Denies hematochezi a, Denies constipa tion, Denies heart burn, Denies diarr hea and Denies vom iting Genitourinary: Genitourinary: Den ies flank pain, De nies urinary frequ ency and Denies ur inary hesitancy Integumentary/Marva sts: Skin/Breast: Denie s breast mass, Den ies dry skin and D enies erythema Neurologic: Denies Abnormal sp eech present, Repo rts abnormal gait, Denies confusion, Denies vertigo an d Denies headache( s) Psychiatric: Psychiatric: Denie s confusion and De nies depression [facility] Family History Family History Mother Lung cancer Father Chronic obstructive pulmonary disease Cerebrovascular accident Social History Social History Years smoked: 1 Smoking status: Former smoker Alcohol intake: current Drinks per week: 21 Substance use type: does not use Do You Feel Safe in your Home?: Yes Lack of Transportation: No Lack of Food: Never True Current Housing: I Have Housing Concerned About Future Housing: No Difficulty Paying Gas/Electric Bills: No Difficulty Paying for Meds: No Currently Unemployed: No Education: Bachelor's Degree Difficulty w/ Childcare or Family Care: No Spiritual care concerns: No Meds Home Medications and Allergies Home Medications Medication Instructions Recorded Confirmed Type bimatoprost 0.01 % eye drops 1 drp EACH EYE HS 02/02/24 02/02/24 History (Mary Anne) rosuvastatin 10 mg tablet 10 mg PO HS 02/02/24 02/02/24 History Allergies Allergy/AdvReac Type Severity Reaction Status Date / Time No Known Allergies Allergy Verified 02/02/24 03:48 Vital Signs Vital Signs - 24 hr 02/06/24 23:38 02/06/24 23:39 02/07/24 00:00 Temperature 98.2 F Pulse Rate 93 80 Respiratory Rate Blood Pressure 141/97 H 129/82 Pulse Oximetry Oxygen Delivery 02/07/24 04:00 02/07/24 05:25 02/07/24 08:00 Temperature 97.9 F Pulse Rate 75 73 85 Respiratory Rate 18 18 Blood Pressure 153/79 H 127/80 Pulse Oximetry 96 95 Oxygen Delivery 02/07/24 08:00 02/07/24 07:30 02/07/24 12:00 Temperature 98.3 F Pulse Rate 79 70 Respiratory Rate 16 Blood Pressure 130/66 Pulse Oximetry 97 Oxygen Delivery Room Air 02/07/24 12:00 02/07/24 12:05 02/07/24 12:10 Temperature Pulse Rate Respiratory Rate Blood Pressure 130/66 133/78 120/77 Pulse Oximetry Oxygen Delivery 02/07/24 12:03 02/07/24 16:03 02/07/24 16:00 Temperature 98.3 F Pulse Rate 91 110 H 74 Respiratory Rate 16 Blood Pressure 122/69 Pulse Oximetry 97 Oxygen Delivery Exam Narrative: Patient is a normal-appearing, normally developed obese white male sitting in chair at the side of his bed. He is awake, alert, oriented, with a fairly good fund of knowledge and recall of events. His face is symmetrical, tongue is midline, is pupils are equal react to light, his extraocular movements are intact, his palate elevates symmetrically, his hearing is grossly intact, his shoulder shrug is symmetrical and strong. There is no drift of the upper extremities Strength is slightly diminished diffusely in both the upper and lower extremities to direct confrontation but is symmetrical. Sensation is intact to light touch in the upper and lower extremities. His neck is supple. Review of studies: MRI of the cervical, thoracic and lumbar spine were personally reviewed by me. There is spondylosis at multiple levels especially in the neck and low back. There is no central canal stenosis causing spinal cord compression at any level. There is foraminal stenosis and cervical spine worse on the left at C4-5 and C5-6 but also present at levels above and below that. Results Labs 02/07/24 06:26 02/07/24 10:32 Labs: Short CBC 02/07/24 Range/Units 06:26 WBC 5.1 (4.5-10.0) K/mm3 Hgb 11.6 L (14.0-18.0) g/dL Hct 34.5 L (42.0-52.0) % Plt Count 184 (150-375) k/mm3 BMP 02/07/24 02/07/24 06:26 10:32 Sodium 138 Potassium 3.1 L 3.6 Chloride 105 Carbon Dioxide 27 BUN 5 L Creatinine 0.70 Glucose 102 Calcium 8.6 Liver Function 02/07/24 Range/Units 06:26 Total Bilirubin 0.6 (0.2-1.3) mg/dL AST 54 (17-59) U/L ALT 34 (6-50) U/L Alkaline Phosphatase 52 (38-126) U/L Albumin 3.0 L (3.5-5.1) g/dL
[2024-02-07 21:06] LABS: Glucose Point of Care 132 mg/dl (65-105)
[2024-02-08] VITALS (7 sets, daily range): BP systolic 97–128; BP diastolic 53–90; PULSE 79–105; RESP 12–20; TEMP 36.7–37.2; O2SAT 94–98
[2024-02-08] MEDS: chlordiazePOXIDE (*CRX) 10 MG CAPSULE PO (03:15)
[2024-02-08 06:24] LABS: Basophils Absolute Auto 0.1 K/mm3 (0.0-0.1); Basophils Percent Auto 1.2 % (0.2-1.2); Eosinophils Absolute Auto 0.1 K/mm3 (0-0.3); Eosinophils Percent Auto 2.4 % (0-4.4); Hematocrit 35.6 % (42.0-52.0); Hemoglobin 11.6 g/dL (14.0-18.0); Immature Granulocyte Absolute 0.03 K/mm3 (0.00-0.031); Immature Granulocyte Percent A 0.6 % (0-0.5); Lymphocytes Absolute Auto 0.79 K/mm3 (0.9-3.2); Lymphocytes Percent Auto 15.6 % (18.3-44.2); Mean Corpuscular HGB Conc 32.6 g/dl (32-36); Mean Corpuscular Hemoglobin 36.7 pg (26-34); Mean Corpuscular Volume 112.7 fl (80-100); Mean Platelet Volume 10.3 fl (7.4-10.4); Monocytes Absolute Auto 1.1 K/mm3 (0.1-0.6); Monocytes Percent Auto 21.9 % (2.6-8.5); Neutrophils Percent Auto 58.3 % (45.5-73.1); Platelet Count Result 215 k/mm3 (150-375); Red Blood Count 3.16 M/mm3 (4.6-6.20); Red Cell Distribution Width 14.6 % (11.5-14.5); White Blood Count 5.1 K/mm3 (4.5-10.0)
[2024-02-08 06:37] LABS: Alanine Aminotransferase 39 U/L (6-50); Albumin Level 3.1 g/dL (3.5-5.1); Alkaline Phosphatase 52 U/L (38-126); Anion Gap 5 mmol/L (4-12); Aspartate Amino Transferase 65 U/L (17-59); Bilirubin,Total 0.7 mg/dL (0.2-1.3); Blood Urea Nitrogen 3 mg/dL (9-20); Calcium 8.6 mg/dL (8.4-10.2); Carbon Dioxide 25 mmol/L (22-30); Chloride 106 mmol/L (98-107); Estimated CRCL calculation 127 ml/min; Estimated Glomerular Filt Rate > 60; Glucose 105 mg/dL (65-110); Potassium 3.4 mmol/L (3.4-5.0); Sodium 136 mmol/L (137-145)
[2024-02-08 06:59] LABS: Anisocytosis 1+; Platelet Estimate Adequate (Adequate); Schistocytes None Seen
[2024-02-08] MEDS: THIAMINE HCL 200 MG/2 ML VIAL 100 MG IV PUSH (09:38)
[2024-02-08] MEDS: THERAPEUTIC MULTIVITAMINS/MINERALS TAB (*BKC) 1 TABLET PO (09:38)
[2024-02-08] MEDS: ASPIRIN 81 MG ENTERIC TABLET PO (09:39)
[2024-02-08] MEDS: ENOXAPARIN 40 MG/0.4 ML SYRINGE SUB-Q (09:39)
[2024-02-08] MEDS: FOLIC ACID 1 MG TABLET PO (09:39)
[2024-02-08 12:27] LABS: Glucose Point of Care 146 mg/dl (65-105)
--- NOTE | 2024-02-08 12:56 | P.PNIM_ITS ---
Progress Note: A&P Assessment and Plan (1) Orthostatic hypotension: Code(s): I95.1 - Orthostatic hypotension Status: Acute (2) Lactic acid acidosis: Code(s): E87.20 - Acidosis, unspecified Status: Acute (3) Alcohol intoxication: Code(s): F10.929 - Alcohol use, unspecified with intoxication, unspecified Status: Acute (4) High anion gap metabolic acidosis: Code(s): E87.29 - Other acidosis Status: Acute Plan HYpotension with lactic acidosis and anion gap metabolic acidosis WBC normal, CXR normal BP wnl, however othostatic this morning ECHO no significant finding, CT Chest/abdomen/pelvis shows 1. Gallbladder distention, which may be secondary to fasting or acute cholecystitis. Correlate with physical exam. 2. Diffuse hepatic steatosis. 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 MRI of cervical, thoracic, lumbar shows severe spondylosis Consulted Neurosurgery awaiting recommendation On aspirin and statin Will defer adding clopidogrel according to Neurology recommendation PT OT Dizziness and orthostatic hypotension Dehydration vs infection vs r/o cardiac etiology Echo: Left ventricle is normal in size and systolic function. The left ventricular ejection fraction is visually estimated to be 50-55%. continue IVF and monitor orthostatic vital signs alcohol intoxication Started Librium tapering dose Started folic acid, thiamine and multivitamins Ativan as needed for anxiety continue IVF and CIWA protocol multivitamin Hypokalemia K 3.0 replaced and monitor Chronic and stable conditions 1.Obesity, BMI 38 2. Dyslipidemia. On Statin 3. Glaucoma. on Bimatoprost Code status. Full Nutrition. Regular DVT prophylaxis Sq Lovenox Subjective Date/time seen: 02/08/24 12:56 Interval history: Patient was evaluated by the neurosurgeon. Recommends medical management. Patient denies any complaints. Had a long conversation about his alcohol habit. Patient agrees to seek help. CIWA score 3. Review of Systems Review of Systems: All systems reviewed & are unremarkable except as noted in HPI and below Constitutional: Constitutional: Reports body ache(s), Reports fatigue and Denies headache(s) Eyes: Eyes: Reports blurry vision ENT: Reports system reviewed and no additional complaints, except as documented, Reports Normal hearing present, Denies dysphagia, Denies vertigo and Denies headache(s) Cardiovascular: Cardiovascular: Denies leg edema, Reports lightheadedness, Reports dyspnea and Reports dyspnea on exertion Respiratory: Respiratory: Reports hemoptysis, Reports dyspnea and Reports dyspnea on exertion Gastrointestinal: Gastrointestinal: Denies hematochezia, Denies constipation, Denies dysphagia, Denies heartburn, Denies diarrhea and Denies vomiting Genitourinary: Genitourinary: Denies flank pain, Denies urinary frequency and Denies urinary hesitancy Musculoskeletal: Musculoskeletal: Reports abnormal gait Integumentary/Breasts: Skin/Breast: Denies breast mass, Denies dry skin and Denies erythema Neurologic: Reports Normal hearing present, Denies Abnormal speech present, Reports abnormal gait, Denies confusion, Denies vertigo and Denies headache(s) Psychiatric: Psychiatric: Denies confusion and Denies depression Endocrine: Endocrine: Reports fatigue Exam Const: General: No confusion Orientation/consciousness: No confusion HENMT: Ears: TM's normal bilaterally Mouth: Yes moist mucous membranes, Yes dry mucous membranes and Yes Abnormal oral and palatal mucosa present Eyes: Pupils: Equal, round and reactive pupils present EOM: EOMs intact bilaterally Neck: Neck: supple Lymphatic: lymphadenopathy not noted Resp: Auscultation: clear to auscultation bilaterally, no crackles, no rales, no rhonchi and no wheezes Cardio: Rate: regular rate Rhythm: regular rhythm GI: Auscultation: normal bowel sounds : Male General Exam: Yes normal external exam Skin: General skin exam: normal color Neuro: General: No confusion Cranial nerves: Yes Equal, round and reactive pupils present and Yes Normal hearing present Speech: No Abnormal speech present Motor exam (neuro): 5/5 motor strength present throughout, Normal motor muscle tone present throughout and Abnormal motor strength present Extrem: General: normal to inspection Psych: Mental Status: mental status grossly normal Affect: normal affect and Anxious affect present Objective Data Vital Signs Vital Signs: Vital Signs - 24 hr 02/07/24 16:03 02/07/24 16:00 02/07/24 20:00 Temperature 98.3 F 98.3 F Pulse Rate 110 H 74 93 Respiratory Rate 16 16 Blood Pressure 122/69 118/75 Pulse Oximetry 97 94 Oxygen Delivery 02/07/24 20:00 02/07/24 20:00 02/08/24 00:00 Temperature Pulse Rate 103 H 105 H Respiratory Rate Blood Pressure Pulse Oximetry Oxygen Delivery Room Air 02/08/24 04:00 02/08/24 04:00 02/08/24 12:00 Temperature 98.0 F 98.1 F Pulse Rate 86 79 87 Respiratory Rate 12 16 Blood Pressure 128/73 104/90 Pulse Oximetry 98 94 Oxygen Delivery Intake/Output Intake/Output: Intake & Output 02/05/24 02/06/24 02/07/24 02/08/24 23:59 23:59 23:59 23:59 Intake Total 3466.3 4217.5 2148 845 Output Total 3000 1700 1275 825 Balance 466.3 2517.5 873 20 Meds/Results Medications: Active Medications Generic Name Dose Route Start Last Admin Trade Name Freq PRN Reason Stop Dose Admin Aspirin 81 mg 02/08/24 09:00 02/08/24 09:39 Aspirin 81 Mg Enteric Tablet PO 81 mg QAM BELIA Administration Enoxaparin Sodium 40 mg 02/03/24 09:00 02/08/24 09:39 Enoxaparin 40 Mg/0.4 Ml Syringe SUB-Q 40 mg DAILY BELIA Administration Folic Acid 1 mg 02/04/24 10:00 02/08/24 09:39 Folic Acid 1 Mg Tablet PO 1 mg DAILY BELIA Administration Sodium Chloride 1,000 mls @ 125 mls/hr 02/02/24 03:50 02/08/24 03:16 Normal Saline Iv IV CONT Not Given .Q8H BELIA Lorazepam 2 mg 02/02/24 06:50 02/04/24 22:10 Lorazepam Inj (*Crx) 2 Mg/Ml Vial IV PUSH 2 mg Q2H PRN Administration CIWA > 15 Multivitamins/Calcium 1 tablet 02/05/24 09:00 02/08/24 09:38 Therapeutic Multivitamins/Minerals Tab (*Bkc) PO 1 tablet QAM BELIA Administration Ondansetron HCl 4 mg 02/02/24 03:49 Ondansetron Inj 4 Mg/2 Ml Vial IV PUSH Q4H PRN Nausea Rosuvastatin Calcium 10 mg 02/02/24 21:00 02/07/24 20:35 Rosuvastatin 10 Mg Tablet PO 10 mg HS BELIA Administration Thiamine HCl 100 mg 02/02/24 09:00 02/08/24 09:38 Thiamine Hcl 200 Mg/2 Ml Vial IV PUSH 100 mg DAILY BELIA Administration Radiology Results: ITS Impressions Chest X-Ray 02/02/24 06:08 Impression: Clear lungs. Chest/Abdomen/Pelvis CT 02/02/24 13:17 IMPRESSION: 1. Gallbladder distention, which may be secondary to fasting or acute cholecystitis. Correlate with physical exam. 2. Diffuse hepatic steatosis. Abdomen Ultrasound 02/02/24 22:48 IMPRESSION: Fat infiltration of the liver. Echogenic Sludge in the gallbladder. Otherwise, normal limited abdominal ultrasound. Brain MRI 02/07/24 05:54 IMPRESSION: 1. 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 Cervical Spine MRI 02/07/24 06:15 IMPRESSION: 1. Severe cervical spondylosis. Lumbar Spine MRI 02/07/24 06:19 IMPRESSION: 1. Severe lumbar spondylosis. Thoracic Spine MRI 02/07/24 06:24 IMPRESSION: 1. Severe thoracic spondylosis. 2. Cervicothoracic levoscoliosis. 3. Normal spinal cord. Labs Labs: Laboratory Results - last 24 hr 02/07/24 02/07/24 02/08/24 18:40 20:36 06:11 WBC 5.1 RBC 3.16 L Hgb 11.6 L Hct 35.6 L MCV 112.7 H MCH 36.7 H MCHC 32.6 RDW 14.6 H Plt Count 215 MPV 10.3 Immature Gran % (Auto) 0.6 H Neut % (Auto) 58.3 Lymph % (Auto) 15.6 L [place] % (Auto) 21.9 H Eos % (Auto) 2.4 Baso % (Auto) 1.2 Lymph # (Auto) 0.79 L [place] # (Auto) 1.1 H Eos # (Auto) 0.1 Baso # (Auto) 0.1 Abs Immat Gran (auto) 0.03 Absolute Neuts (auto) 3.0 Absolute Nucleated RBC 0.000 Nucleated RBC % 0.0 Platelet Estimate Adequate Anisocytosis 1+ Schistocytes None seen Sodium 136 L Potassium 3.4 Chloride 106 Carbon Dioxide 25 Anion Gap 5 BUN 3 L Creatinine 0.70 Estim Creat Clear Calc 127 Estimated GFR > 60 Glucose 105 POC Capillary Glucose 109 H 132 H Calcium 8.6 Total Bilirubin 0.7 AST 65 H ALT 39 Alkaline Phosphatase 52 Total Protein 5.0 L Albumin 3.1 L 02/08/24 12:21 WBC RBC Hgb Hct MCV MCH MCHC RDW Plt Count MPV Immature Gran % (Auto) Neut % (Auto) Lymph % (Auto) [place] % (Auto) Eos % (Auto) Baso % (Auto) Lymph # (Auto) [place] # (Auto) Eos # (Auto) Baso # (Auto) Abs Immat Gran (auto) Absolute Neuts (auto) Absolute Nucleated RBC Nucleated RBC % Platelet Estimate Anisocytosis Schistocytes Sodium Potassium Chloride Carbon Dioxide Anion Gap BUN Creatinine Estim Creat Clear Calc Estimated GFR Glucose POC Capillary Glucose 146 H Calcium Total Bilirubin AST ALT Alkaline Phosphatase Total Protein Albumin Quality VTE Prophylaxis VTE prophylaxis: mechanical ordered and pharmacologic ordered
[2024-02-08] MEDS: ROSUVASTATIN 10 MG TABLET PO (20:43)
[2024-02-08 22:03] LABS: Glucose Point of Care 150 mg/dl (65-105)
[2024-02-09] VITALS (9 sets, daily range): BP systolic 103–136; BP diastolic 67–84; PULSE 72–100; RESP 18–22; TEMP 36.5–36.8; O2SAT 92–98
[2024-02-09 06:17] LABS: Glucose Point of Care 104 mg/dl (65-105)
[2024-02-09 06:36] LABS: Basophils Absolute Auto 0.1 K/mm3 (0.0-0.1); Basophils Percent Auto 1.3 % (0.2-1.2); Eosinophils Absolute Auto 0.1 K/mm3 (0-0.3); Eosinophils Percent Auto 2.5 % (0-4.4); Hematocrit 35.4 % (42.0-52.0); Hemoglobin 11.9 g/dL (14.0-18.0); Immature Granulocyte Absolute 0.02 K/mm3 (0.00-0.031); Immature Granulocyte Percent A 0.4 % (0-0.5); Lymphocytes Absolute Auto 0.89 K/mm3 (0.9-3.2); Lymphocytes Percent Auto 18.8 % (18.3-44.2); Mean Corpuscular HGB Conc 33.6 g/dl (32-36); Mean Corpuscular Hemoglobin 37.9 pg (26-34); Mean Corpuscular Volume 112.7 fl (80-100); Mean Platelet Volume 10.7 fl (7.4-10.4); Monocytes Absolute Auto 1.2 K/mm3 (0.1-0.6); Monocytes Percent Auto 24.3 % (2.6-8.5); Neutrophils Absolute Auto 2.5 K/mm3 (1.3-6.7); Neutrophils Percent Auto 52.7 % (45.5-73.1); Platelet Count Result 242 k/mm3 (150-375); Red Blood Count 3.14 M/mm3 (4.6-6.20); Red Cell Distribution Width 14.9 % (11.5-14.5); White Blood Count 4.7 K/mm3 (4.5-10.0)
[2024-02-09 06:45] LABS: Alanine Aminotransferase 40 U/L (6-50); Albumin Level 3.1 g/dL (3.5-5.1); Alkaline Phosphatase 50 U/L (38-126); Anion Gap 9 mmol/L (4-12); Aspartate Amino Transferase 63 U/L (17-59); Bilirubin,Total 0.6 mg/dL (0.2-1.3); Blood Urea Nitrogen 4 mg/dL (9-20); Calcium 9.2 mg/dL (8.4-10.2); Carbon Dioxide 24 mmol/L (22-30); Chloride 105 mmol/L (98-107); Estimated CRCL calculation 127 ml/min; Estimated Glomerular Filt Rate > 60; Glucose 91 mg/dL (65-110); Magnesium 1.8 mg/dL (1.6-2.3); Phosphorus 4.4 mg/dL (2.5-4.5); Potassium 3.2 mmol/L (3.4-5.0); Sodium 138 mmol/L (137-145)
[2024-02-09] MEDS: THIAMINE HCL 200 MG/2 ML VIAL 100 MG IV PUSH (08:35)
[2024-02-09] MEDS: ASPIRIN 81 MG ENTERIC TABLET PO (08:35)
[2024-02-09] MEDS: THERAPEUTIC MULTIVITAMINS/MINERALS TAB (*BKC) 1 TABLET PO (08:35)
[2024-02-09] MEDS: FOLIC ACID 1 MG TABLET PO (08:35)
[2024-02-09] MEDS: ENOXAPARIN 40 MG/0.4 ML SYRINGE SUB-Q (08:35)
--- NOTE | 2024-02-09 10:17 | PCNWS ---
Weekly nutritional screen. Patient is tolerating current low fat diet with adequate intake at 50-100% of meals. No weight loss reported. No nutritional recommendations at this time.
[2024-02-09] MEDS: POTASSIUM CHLORIDE 20 MEQ ER TABLET 60 MEQ PO (10:39)
[2024-02-09 11:42] LABS: Glucose Point of Care 148 mg/dl (65-105)
[2024-02-09 12:37] LABS: Potassium 3.7 mmol/L (3.4-5.0)
--- NOTE | 2024-02-09 13:50 | PM.DS ---
DS: Admitting Diagnosis Discharge Date 02/09/2024 Admitting Diagnosis Dizziness DS: Discharge Diagnosis Discharge Diagnosis (1) Orthostatic hypotension: Code(s): I95.1 - Orthostatic hypotension Status: Acute (2) Lactic acid acidosis: Code(s): E87.20 - Acidosis, unspecified Status: Acute (3) Alcohol intoxication: Code(s): F10.929 - Alcohol use, unspecified with intoxication, unspecified Status: Acute (4) High anion gap metabolic acidosis: Code(s): E87.29 - Other acidosis Status: Acute Plan Please refer to hospital course for brief summary HYpotension with lactic acidosis and anion gap metabolic acidosis WBC normal, CXR normal BP wnl, however othostatic this morning ECHO no significant finding, CT Chest/abdomen/pelvis shows 1. Gallbladder distention, which may be secondary to fasting or acute cholecystitis. Correlate with physical exam. 2. Diffuse hepatic steatosis. 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 MRI of cervical, thoracic, lumbar shows severe spondylosis Consulted Neurosurgery awaiting recommendation On aspirin and statin Will defer adding clopidogrel according to Neurology recommendation PT OT Dizziness and orthostatic hypotension Dehydration vs infection vs r/o cardiac etiology Echo: Left ventricle is normal in size and systolic function. The left ventricular ejection fraction is visually estimated to be 50-55%. continue IVF and monitor orthostatic vital signs alcohol intoxication Started Librium tapering dose Started folic acid, thiamine and multivitamins Ativan as needed for anxiety continue IVF and CIWA protocol multivitamin Hypokalemia K 3.0 replaced and monitor Chronic and stable conditions 1.Obesity, BMI 38 2. Dyslipidemia. On Statin 3. Glaucoma. on Bimatoprost Code status. Full Nutrition. Regular DVT prophylaxis Sq Lovenox DS: Summary Hospital Course Hospital Course: Patient is a 61-year-old gentleman who presents emergency department with chief complaint of dizziness. The patient reports that he had a few drinks this evening and then reports that he has been feeling lightheaded patient reports that over the last week or so he has had episodes where he has been getting lightheaded with standing and reports that he continues walking he with then loses balance and fall the ground the patient denies head injury denies loss of consciousness reports that the symptoms are improved with gradual standing. The patient reports that he has had no vomiting or diarrhea denies chest pain or shortness of breath During the hospitalization the CT showed gallbladder distention and/and was suspected cholecystitis. Surgery was consulted. They recommend that Findings on CT with gallbladder distention are likely incidental. The gallbladder distention could be related to his fasting. He has not had any abdominal pain and his abdominal exam is completely benign. There is no indication for surgical intervention at this time.U/S reviewed and c/w sludge but no evidence of cholecystitis, exam remains completely benign, continue low-fat diet, would discontinue any antibiotics related to cholecystitis, no acute surgical issues. After myself assuming the care, patient had decreased mobility. MRI of brain and spine was done. Neurosurgery was consulted and they recommended conservative treatment for spondylosis. Please refer to neurosurgery note. During the hospitalization patient had a signs of alcohol withdrawal but currently he is doing fine. Patient had hypokalemia. 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 Had a long conversation about his alcohol habits. Advised to cut down and encouraged weight loss. Discharged with following instructions: Patient need to cut down his alcohol. Patient needs to visit his PCP within a week upon discharge. Patient potassium is consistently low. Patient will be discharged with oral potassium supplement 20 mEq. BMP is ordered. Need to discuss with the primary care physician in regards to continuing the potassium supplement. Patient need to visit compliance auditor and discuss about weight loss program. Time Spent with Patient Time attestation: Total time spent providing and/or coordinating discharge services: Exam Const: General: No confusion Orientation/consciousness: No confusion HENMT: Ears: TM's normal bilaterally Mouth: Yes moist mucous membranes, Yes dry mucous membranes and Yes Abnormal oral and palatal mucosa present Eyes: Pupils: Equal, round and reactive pupils present EOM: EOMs intact bilaterally Neck: Neck: supple Lymphatic: lymphadenopathy not noted Resp: Auscultation: clear to auscultation bilaterally, no crackles, no rales, no rhonchi and no wheezes Cardio: Rate: regular rate Rhythm: regular rhythm GI: Auscultation: normal bowel sounds : Male General Exam: Yes normal external exam Skin: General skin exam: normal color Neuro: General: No confusion Cranial nerves: Yes Equal, round and reactive pupils present and Yes Normal hearing present Speech: No Abnormal speech present Motor exam (neuro): 5/5 motor strength present throughout, Normal motor muscle tone present throughout and Abnormal motor strength present Extrem: General: normal to inspection Psych: Mental Status: mental status grossly normal Affect: normal affect and Anxious affect present DS: Data Data Completed and Pending Labs on day of discharge: Labs from last 24 hours 02/09/24 02/09/24 02/09/24 12:21 11:39 06:10 WBC RBC Hgb Hct MCV MCH MCHC RDW Plt Count MPV Immature Gran % (Auto) Neut % (Auto) Lymph % (Auto) [place] % (Auto) Eos % (Auto) Baso % (Auto) Lymph # (Auto) [place] # (Auto) Eos # (Auto) Baso # (Auto) Abs Immat Gran (auto) Absolute Neuts (auto) Absolute Nucleated RBC Nucleated RBC % Sodium Potassium 3.7 Chloride Carbon Dioxide Anion Gap BUN Creatinine Estim Creat Clear Calc Estimated GFR Glucose POC Capillary Glucose 148 H 104 Calcium Phosphorus Magnesium Total Bilirubin AST ALT Alkaline Phosphatase Total Protein Albumin 02/09/24 02/08/24 05:41 22:01 WBC 4.7 RBC 3.14 L Hgb 11.9 L Hct 35.4 L MCV 112.7 H MCH 37.9 H MCHC 33.6 RDW 14.9 H Plt Count 242 MPV 10.7 H Immature Gran % (Auto) 0.4 Neut % (Auto) 52.7 Lymph % (Auto) 18.8 [place] % (Auto) 24.3 H Eos % (Auto) 2.5 Baso % (Auto) 1.3 H Lymph # (Auto) 0.89 L [place] # (Auto) 1.2 H Eos # (Auto) 0.1 Baso # (Auto) 0.1 Abs Immat Gran (auto) 0.02 Absolute Neuts (auto) 2.5 Absolute Nucleated RBC 0.000 Nucleated RBC % 0.0 Sodium 138 Potassium 3.2 L Chloride 105 Carbon Dioxide 24 Anion Gap 9 BUN 4 L Creatinine 0.70 Estim Creat Clear Calc 127 Estimated GFR > 60 Glucose 91 POC Capillary Glucose 150 H Calcium 9.2 Phosphorus 4.4 Magnesium 1.8 Total Bilirubin 0.6 AST 63 H ALT 40 Alkaline Phosphatase 50 Total Protein 6.0 L Albumin 3.1 L Discharge Plan Discharge Attending physician on discharge: Patel Zuñiga Consulting providers: Martin Peoples Riaz Discharging Clinician: Patel Zuñiga Anticipated Discharge Date/Time: 02/09/24 13:45 Patient Disposition: Home Health Service Activity: as tolerated Diet: regular Discharge Instructions: Per Care Coordination: [facility] ([phone]) has been arranged for RN, PT, and OT - they will call you regarding start of first visit. Patient need to cut down his alcohol. Patient needs to visit his PCP within a week upon discharge. Patient potassium is consistently low. Patient will be discharged with oral potassium supplement 20 mEq. BMP is ordered. Need to discuss with the primary care physician in regards to continuing the potassium supplement. Patient need to visit compliance auditor and discuss about weight loss program. Patient Instructions: Antibiotic Form, Pain Management (DC) Stand Alone Forms: General Discharge Information Follow-up/Referrals: Roland,ELIE Dior [Primary Care Provider] - 1 Week (Patient potassium is consistently low. Patient will be discharged with oral potassium supplement 20 mEq. BMP is ordered. Need to discuss with the primary care physician in regards to continuing the potassium supplement. Patient need to visit compliance auditor and discuss about weight loss program.) Discharge Medications: New folic acid 1 mg Tablet 1 mg PO DAILY Qty: 30 0RF potassium chloride 10 mEq capsule, extended release 10 meq PO DAILY Qty: 10 0RF Continued rosuvastatin 10 mg tablet 10 mg PO HS [place] 0.01 % drops 1 drp EACH EYE HS Other Ambulatory Orders: Basic Metabolic Panel (Routine) Timeframe: 1 Week Location: Determined by Patient Ordered By: Patel Zuñiga Date of admission: 02/04/24 16:22 Primary Care Provider: Barby Johnson Admitting Provider: Gerardo Hussein Attending physician on admission: Gerardo Hussein Condition: Stable
--- NOTE | 2024-02-09 18:22 | P.CONNEU_ITS ---
Assessment and Plan Assessment and plan (1) Ataxia: Code(s): R27.0 - Ataxia, unspecified Status: Acute (2) Chronic alcoholism: Code(s): F10.20 - Alcohol dependence, uncomplicated Status: Acute Plan The patient has shown improvement since the admission. I reviewed the MRI of the brain as well as cervical thoracic and lumbosacral spine. Significant arthritic changes are described throughout the spine however no evidence of spinal cord compression. This has also been evaluated by the neurosurgeon who also did not recommend any surgical intervention. MRI of the brain did not show any significant infarction or hydrocephalus. The predominant issue is that of the alcohol drinking. The liver enzymes were slightly high and platelet count of the low. I mention to him that he should try to work on issue of alcoholism and he is aware of it. Consult date: 02/09/24 HPI: Yoshi Cramer is a 63 year old male With history of alcoholism and difficulty in walking was seen for neurologic evaluation. Patient has improved since his admission to the hospital. He was also seen by Neurosurgery and has had MRI of the brain as well as entire spine the findings of which were reviewed by myself also. He has had symptoms of dizziness and some postural hypotension. His the liver enzymes were high and platelet count was low. There is a clear history of drinking alcohol for a long time. At this time he feels that he can walk around with a walker or a cane. Patient's was also present the time of the evaluation. He denies any specific symptoms with regard to left or right side of the body. No difficulty speech or swallowing. Review of Systems Review of Systems: All systems reviewed & are unremarkable except as noted in HPI and below PMFSH Past Medical History Medical History (Updated 02/09/24 @ 18:26 by Violet Guillen MD) Ataxia Chronic alcoholism Family History Family History Mother Lung cancer Father Chronic obstructive pulmonary disease Cerebrovascular accident Social History Social History Years smoked: 1 Smoking status: Former smoker Alcohol intake: current Drinks per week: 21 Substance use type: does not use Do You Feel Safe in your Home?: Yes Lack of Transportation: No Lack of Food: Never True Current Housing: I Have Housing Concerned About Future Housing: No Difficulty Paying Gas/Electric Bills: No Difficulty Paying for Meds: No Currently Unemployed: No Education: Bachelor's Degree Difficulty w/ Childcare or Family Care: No Spiritual care concerns: No Meds Home Medications and Allergies Home Medications Medication Instructions Recorded Confirmed Type bimatoprost 0.01 % eye drops 1 drp EACH EYE HS 02/02/24 02/02/24 History ([place]) rosuvastatin 10 mg tablet 10 mg PO HS 02/02/24 02/02/24 History folic acid 1 mg tablet 1 mg PO DAILY #30 tabs 02/09/24 Rx potassium chloride 10 mEq 10 meq PO DAILY #10 caps 02/09/24 Rx capsule,extended release Allergies Allergy/AdvReac Type Severity Reaction Status Date / Time No Known Allergies Allergy Verified 02/02/24 03:48 Vital Signs Vital Signs - 24 hr 02/08/24 20:00 02/08/24 20:00 02/09/24 00:00 Temperature 98.9 F 98 F Pulse Rate 96 87 90 Respiratory Rate 20 18 Blood Pressure 126/84 130/80 Pulse Oximetry 95 97 02/09/24 00:00 02/09/24 04:00 02/09/24 06:03 Temperature 97.7 F Pulse Rate 79 72 78 Respiratory Rate 20 Blood Pressure 136/79 Pulse Oximetry 98 02/09/24 06:03 02/09/24 06:05 02/09/24 06:06 Temperature Pulse Rate 80 87 96 Respiratory Rate Blood Pressure 136/79 134/84 115/74 Pulse Oximetry 02/09/24 08:00 02/09/24 12:00 02/09/24 12:00 Temperature 98.1 F 98.3 F Pulse Rate 95 75 87 Respiratory Rate 18 18 18 Blood Pressure 119/70 120/67 135/78 Pulse Oximetry 92 92 92 02/09/24 13:58 02/09/24 13:59 02/09/24 08:00 Temperature Pulse Rate 95 100 100 Respiratory Rate 18 22 H Blood Pressure 118/78 103/69 Pulse Oximetry 93 92 Exam Narrative: Fully conscious alert oriented to self time place and person. No aphasia or dysarthria. Examination head and neck was unremarkable. No evidence of ex ternal trauma. No nuchal rigidity. No carotid bruit. Cranial nerves annual testing reveal pupils were equal react to light. Visual lopez by confrontation are normal. There is no facial asymmetry. Tongue was midline. Other cranials were normal limits. Motor system shows normal power and tone in both upper and lower limbs. Deep tendon reflexes did not show any significant asymmetry. Generally decreased in both lower limbs. Sensory shows intact to pin temperature and vibration. No ataxia nystagmus or intention tremors were noted. He can use a walker to get around. Results Labs 02/09/24 05:41 02/09/24 12:21 Labs: Short CBC 02/09/24 Range/Units 05:41 WBC 4.7 (4.5-10.0) K/mm3 Hgb 11.9 L (14.0-18.0) g/dL Hct 35.4 L (42.0-52.0) % Plt Count 242 (150-375) k/mm3 BMP 02/09/24 02/09/24 05:41 12:21 Sodium 138 Potassium 3.2 L 3.7 Chloride 105 Carbon Dioxide 24 BUN 4 L Creatinine 0.70 Glucose 91 Calcium 9.2 Liver Function 02/09/24 Range/Units 05:41 Total Bilirubin 0.6 (0.2-1.3) mg/dL AST 63 H (17-59) U/L ALT 40 (6-50) U/L Alkaline Phosphatase 50 (38-126) U/L Albumin 3.1 L (3.5-5.1) g/dL
== END 2024-02-09 14:25 | disposition home health service (06) | DRG 312 ==
LOC: ANHED 02-02 03:52 → ANH3MEDSUR 02-02 05:05
PROVIDERS: Internal Medicine; Student in an Organized Health Care Education/Training Program; Admitting Provider Internal Medicine; Emergency Provider Emergency Medicine; PCP Physician Assistant; Visit Provider General Practice
DX: I95.1 Orthostatic hypotension (principal); E87.29 Other acidosis; E78.5 Hyperlipidemia, unspecified; E87.6 Hypokalemia; M47.812 Spondylosis without myelopathy or radiculopathy, cervical region; M47.816 Spondylosis without myelopathy or radiculopathy, lumbar region; M47.814 Spondylosis without myelopathy or radiculopathy, thoracic region; M48.02 Spinal stenosis, cervical region; R26.9 Unspecified abnormalities of gait and mobility; R93.2 Abnormal findings on diagnostic imaging of liver and biliary tract; H40.9 Unspecified glaucoma; F10.20 Alcohol dependence, uncomplicated; Z87.891 Personal history of nicotine dependence
CPT/HCPCS: 36415; 70551; 71045; 71260; 72141; 72146; 72148; 74177; 76705; 80048; 80053; 81001; 82077; 82607; 82746; 82948; 83605; 83735; 83880; 84100; 84132; 84484; 85025; 85055; 87040; 93005; 93306; 96361; 96365; 96367; 97110; 97116; 97161; 97165; 97530; 97535; 97750; 99285; A9270; G0378; J0696; J1644; J1650; J1836; J2060; J3411; J3475; J7030; J7060; Q9967

== ENCOUNTER 2024-12-01 09:18 | Outpatient (CLI) | payer BC, SELFPAY ==
--- NOTE | ~2024-12-01 | XR_ITS ---
EXAMINATION: XR hip LT min 2V, 12/01/2024 9:31 CDT HISTORY: Pain in lt hip COMPARISON: No comparisons available. Findings: No acute fracture or malalignment. Severe degenerative changes Soft tissues unremarkable. Impression: No acute fracture or malalignment. Reviewed, dictated and finalized at location P. Impression: No acute fracture or malalignment.
== END 2024-12-01 09:19 | disposition home or self-care (01) ==
PROVIDERS: PCP Physician Assistant; Visit Provider Physician Assistant
DX: M25.552 Pain in left hip (principal)
CPT/HCPCS: 73502